=== PATIENT | male | born 1970 | race Caucasian/White ===

== ENCOUNTER 2024-06-22 10:01 | Outpatient (OUT) | payer OTHER, SELFPAY | END 2024-06-22 10:02 | disposition home or self-care (01) | PROVIDERS: PCP Nurse Practitioner; Visit Provider Otolaryngology | DX: J30.9 Allergic rhinitis, unspecified (principal) | CPT/HCPCS: 36415; 82785; 86003 ==

== ENCOUNTER 2024-07-04 16:22 | Outpatient (OUT) | payer OTHER, SELFPAY ==
--- OUTSIDE RECORDS SUMMARY | 2024-07-04 16:25 | XMS_ITS | CCD ---
Author Organization [facility] Care Team Providers Care Manager Of Organizational Development Name Role Phone Keila Lemus Primary Care Physician [phone] GERARDO COSME Referring Unavailable TIMMISMIRIAM Attending Unavailable ROBELALESHA Referring Unavailable TIMMISMIRIAM Referring Unavailable BordnerLisa Attending Unavailable STRANGEKATHARINE AGUAYO Attending Unavailabl e ROBEL, ALESHA Escobar Attending Unavailable STRANGEKATHARINE AGUAYO Attending Unavailabl e Mariah, Keila Beltran Attending Unavailable Mariah, Keila Beltran Attending Unavailable ROBEL, ALESHA Escobar Attending Unavailable ROBEL, ALESHA Escobar Attending Unavailable Mariah, Keila Beltran Attending Unavailable Mariah, Keila Beltran Attending Unavailable Mariah, Keila Beltran Attending Unavailable Mariah, Keila Beltran Attending Unavailable Mariah, Keila Beltran Attending Unavailable Mariah, Keila Beltran Attending Unavailable Mariah, Keila Beltran Attending Unavailable Mariah, Keila Beltran Attending Unavailable ROBELALESHA Attending Unavailable Medications Current Medications Medication Drug Class(es) Dates Sig (Normalized) Sig (Original) azithromycin 500 mg oral tablet (2 sources) Macrolide Antimicrobial Start: 4 End: 4 take 1 tablet by mouth once daily Zithromax 500 mg oral tablet 500 mg = 1 tab(s), Oral, Daily, X 5 day(s), # 5 tab(s), Refills(s) 0, Pharmacy: [facility]/pharmacy #[id number], 177, cm, 04/14/24 13:38:00 EDT, Height/Length Dosing, 122.3, kg, 04/14/24 13:38:00 EDT, Weight Dosing Start Date: 04/14/24 Stop Date: 04/19/24 Status: Ordered cyclobenzaprine hydrochloride 5 mg oral tablet (1 source) Muscle Relaxant Start: 4 End: 4 take 1 tablet by mouth at bedtime cyclobenzaprine 5 mg Tab 5 mg = 1 tab(s), Oral, Bedtime, X 7 day(s), # 7 tab(s), Refills(s) 0, Pharmacy: [facility]/pharmacy #[id number], 177, cm, 03/15/24 13:18:00 EDT, Height/Length Dosing, 122, kg, 03/15/24 13:18:00 EDT, Weight Dosing Start Date: 03/15/24 Stop Date: 03/22/24 Status: Ordered meloxicam 15 mg oral tablet (3 sources) Nonsteroidal Anti-inflammatory Drug Start: 3 take 1 tablet by mouth once daily meloxicam 15 mg Tab 15 mg = 1 tab(s), Oral, Daily, Refills(s) 0 Start Date: 08/19/23 Status: Ordered methylPREDNISolone 4 mg oral tablet (2 sources) Corticosteroid Start: 4 Medrol Dosepack 4 mg Tab = 1 packet(s), Oral, Once, as directed on package labeling, # 21 tab(s), Refills(s) 0, Pharmacy: [facility]/pharmacy #[id number], 177, cm, 04/14/24 13:38:00 EDT, Height/Length Dosing, 122.3, kg, 04/14/24 13:38:00 EDT, Weight Dosing Start Date: 04/14/24 Status: Ordered omeprazole 40 mg delayed release oral capsule (3 sources) Proton Pump Inhibitor Start: 4 take 1 capsule by mouth once daily omeprazole 40 mg Cap-DR 40 mg = 1 cap(s), Oral, Daily, # 90 cap(s), Refills(s) 1, Pharmacy: [facility]/pharmacy #[id number], 177, cm, 12/13/23 15:39:00 EDT, Height/Length Dosing, 119.9, kg, 12/13/23 15:39:00 EDT, Weight Dosing Start Date: 12/13/23 Status: Ordered Completed/Discontinued Medications Medication Drug Class(es) Dates Sig (Normalized) Sig (Original) atorvastatin 10 mg oral tablet (3 sources) HMG-CoA Reductase Inhibitor Start: 08-28-2023 lisinopril 10 mg oral tablet (3 sources) Angiotensin Converting Enzyme Inhibitor Start: 05-09-2023 loratadine 10 mg oral tablet (3 sources) Start: 05-07-2015 Problems Problem Classification Problem Date Documented Da te Episodic/Chronic Bacterial infection; unspecified site (1 source) Bacterial infectious disease; Translations: [Other specified bacterial agents as the cause of diseases classified elsewhere] Onset: 4 Episodic Conditions associated with dizziness or vertigo (3 sources) Dizziness 10-14-2023 Episodic Disorders of lipid metabolism (3 sources) Hyperlipidemia 08-19-2023 Chronic Esophageal disorders (3 sources) Gastroesophageal reflux disease 12-13-2023 Chronic Essential hypertension (3 sources) Essential hypertension 08-19-2023 Chronic Gastrointestinal hemorrhage (3 sources) Hematochezia 01-31-2024 Episodic Noninfectious gastroenteritis (3 sources) Gastroenteritis 12-09-2023 Episodic Other ear and sense organ disorders (3 sources) Hearing loss 08-19-2023 Chronic Other ear and sense organ disorders (3 sources) Tinnitus 08-19-2023 Episodic Other nutritional; endocrine; and metabolic disorders (1 source) Obesity; Translations: [Obesity, unspecified] Onset: 4 Chronic Other nutritional; endocrine; and metabolic disorders (1 source) Obese class II; Translations: [Body mass index (BMI) 38.0-38.9, adult] Onset: 4 Chronic Other nutritional; endocrine; and metabolic disorders (3 sources) Body mass index 30+ - obesity 01-31-2024 Chronic Other upper respiratory disease (3 sources) Seasonal allergy 08-19-2023 Chronic Other upper respiratory infections (3 sources) Sinusitis 08-19-2023 Chronic Other upper respiratory infections (1 source) Acute sinusitis, unspecified; Translations: [Acute sinusitis, unspecified] Onset: 4 Episodic Otitis media and related conditions (6 sources) Finding of fluid behind tympanic membrane; Translations: [Otitis media of right ear] 10-14-2023 Episodic Spondylosis; intervertebral disc disorders; other back problems (4 sources) Low back pain; Translations: [Low back pain, unspecified] Onset: 4 Episodic Results Test Name Value Interpretation Reference Range Facility Provider Letteron 06-23-2024 Provider Letter Provider Letter June 23, 2024 GILLIAN ARROYO [id number] [id number] : 1970 To Whom It May Concern, Please excuse above patient from work. Date of Illness: From: 06/22/2024 To: 06/23/2024 May Return to Work On: 06/26/2024 Sincerely, [address] [address] [facility] Ambulatory Visit Summaryon 1 Ambulatory Visit Summary Ambulatory Visit Summary GILLIAN ARROYO :1970 Visit Date:06/22/2024 Ambulatory Visit Instructions Your Diagnosis Chronic back pain BMI 40.0-44.9, adult Former smoker Your Care Team Attending Physician - Keila House Primary Care Physician - Keila House This Is Your Medications List atorvastatin (atorvastatin 10 mg Tab) baclofen cetirizine (cetirizine 10 mg Tab) fluticasone nasal (fluticasone Nasal 0.05 mg/inh [place]) lisinopril (lisinopril 10 mg Tab) meloxicam (meloxicam 15 mg Tab) omeprazole (omeprazole 40 mg Cap-DR) [Image Removed: STOP]Stop taking these medications amoxicillin-clavulanate (amoxicillin-clavulanat e 875 mg-125 mg Tab) Procedures Performed Surgery, Surgery. Discharge Vitals Temperature (Tympanic) 36.5 ?C Heart Rate (Peripheral) 80 Respiratory Rate 18 Blood Pressure 124/86 Height 178.0 cm Height 70 in Weight 128.3 kg Weight 282.26 lb BMI 40.49 What to do next Scheduled Follow-Up Appointments Wednesday 11:20 AM EST With: Keila House Where: [place] [id number]- Medications What How Much When Instructions Unchanged atorvastatin (atorvastatin 10 mg Tab) 1 Tablets By Mouth Every day 10 Unknown, ORAL, 0 Refill(s) Unchanged baclofen By Mouth 3 times a day Unchanged cetirizine (cetirizine 10 mg Tab) TAKE 1 TABLET BY MOUTH EVERY DAY NEEDED FOR ALLERGIES Unchanged fluticasone nasal (fluticasone Nasal 0.05 mg/ inh [place]) PLEASE SEE ATTACHED FOR DETAILED DIRECTIONS Unchanged lisinopril (lisinopril 10 mg Tab) 1 Tablets By Mouth Every day Unknown, 0 Refill(s) Unchanged meloxicam (meloxicam 15 mg Tab) 1 Tablets By Mouth Every day Unchanged omeprazole (omeprazole 40 mg Cap-DR) See instructions TAKE 1 CAPSULE BY MOUTH EVERY DAY What When Comments Stop Taking amoxicillin-clavulanate (amoxicillin-clavulanat e 875 mg-125 mg Tab) TAKE 1 TABLET BY MOUTH IN THE MORNING AND BEFORE BEDTIME Allergies No Known Allergies Problems Ongoing - Any problem that you are currently receiving treatment for. Acid reflux Back pain Bloody stool BMI 38.0-38.9,adult Chronic back pain Chronic sinus infection Dizziness Essential hypertension Fluid level behind tympanic membrane of both ears Gastroenteritis Hearing loss Hyperlipidemia Right otitis media Seasonal allergies Sinusitis Tinnitus Patient Survey You may receive a survey via text or e-mail asking about your office visit. Please share your experience with us by completing your survey. We appreciate your feedback and thank you for choosing us for your care. [facility] Family Medicine Office/Clini c Noteon 06-22-2024 Family Medicine Office/Clinic Note Family Medicine Office/Clinic Note HPI Staff Pt presents today for acute visit. Respiratory C/O: Onset: 3 days ago Body aches: no Chest congestion: no Chills: no Cough: yes Sputum production: no Sore throat: yes Ear complaints: no Eye itching/watering: yes Fever: no Headache: yes Nasal congestion: yes Nasal discharge: no Poor appetite: no Reduced activity: no Sinus pain/pressure: yes Sneezing: no Wheezing: no Ill contacts: no Remedies tried: DayQuil , Sudafed, Tylenol Pt is having allergy test done today after appointment, completed amoxicillin last Wednesday. pt states he called off work Wednesday and Wednesday. Pain characteristics: Pain location: Lower back pain Intensity:5/10 worse over the last week everyday he is working Medication used: Baclofen, meloxicam Intermittently will feel like both legs are falling asleep within half hour of driving. History of Present Illness pt presents today for sinus pressure and congestion and back pain Review of Systems PHQ Score Initial Depression Screen Score: 0 SCORE Physical Exam Vitals & Measurements T: 36.5 ?C(Tympanic) HR: 80(Peripheral) RR: 18 BP: 124/86 SpO2: 97% HT: 70 in HT: 178.0 cm WT: 128.3 kg WT: 282.26 lb BMI: 40.49 General: alert, no acute distress ENMT: oral mucosa moist, no pharyngeal erythema or exudate Cardiovascular: regular rate and rhythm, normal peripheral perfusion Respiratory: Lungs CTA, respirations non labored Extremities: no deformity, no trauma Neurological: oriented x 4, LOC appropriate for age, CN II-XII intact, motor strength equal & normal bilaterally, speech normal Assessment/Plan 1. Sinusitis (J32.9: Chronic sinusitis, unspecified) pt was on a one month regimen by Dr. Ortiz. pt was instructed to call Dr. Ortiz if symptoms persisted after the treatment. he is back today with sinus pressure and tenderness, eye are red and ear canals are red. TM clear fluid. pt instructed to call Dr. Ortiz. He was going to order CT of sinuses if symptoms came back. pt encouraged to continue probiotics and eating yogurt since he was on antibiotics for so long 2. Chronic back pain (M54.9: Dorsalgia, unspecified) pt has found a couple places he can stop to stretch when driving to work. sitting in the car for too long causes back pain to worsen and leg numbness 3. BMI 40.0-44.9, adult (Z68.41: Body mass index [BMI] 40.0-44.9, adult) BMI education given 4. Former smoker (Z87.891: Personal history of nicotine dependence) continue not smoking Orders: amoxicillin-clavulanate , 1 tab(s), Oral, q12hr for 7 day(s), 14 tab(s), Refill(s) 0, [id number], 178, cm, 06/22/24 9:14:00 EDT, Height/Length Dosing, 128.3, kg, 06/22/24 9:14:00 EDT, Weight Dosing methylPREDNISolone, = 1 packet(s), Oral, Once, as directed on package labeling, # 21 tab(s), Refills(s) 0, Pharmacy: [id number], 178, cm, 06/22/24 9:14:00 EDT, Height/Length Dosing, 128.3, kg, 06/22/24 9:14:00 EDT, Weight Dosing Follow-up No qualifying data available Problem List/Past Medical History Ongoing Acid reflux Back pain Bloody stool BMI 38.0-38.9,adult Chronic back pain Chronic sinus infection Dizziness Essential hypertension Fluid level behind tympanic membrane of both ears Gastroenteritis Hearing loss Hyperlipidemia Right otitis media Seasonal allergies Sinusitis Tinnitus Historical No qualifying data Procedure/Surgical History Surgery, Surgery. Medications amoxicillin-clavulanate 875 mg-125 mg Tab, 1 tab(s), Oral, q12hr atorvastatin 10 mg Tab, 10 mg= 1 tab(s), Oral, Daily baclofen, Oral, TID cetirizine 10 mg Tab fluticasone Nasal 0.05 mg/inh [place] lisinopril 10 mg Tab, 10 mg= 1 tab(s), Oral, Daily meloxicam 15 mg Tab, 15 mg= 1 tab(s), Oral, Daily methylPREDNISolone 4 mg tab dosepak, 1 packet(s), Oral, Once omeprazole 40 mg Cap-DR, See Instructions Allergies No Known Allergies Social History Tobacco Former smoker, quit more than 30 days ago, quit 2013 Tobacco Use:. Never Smokeless Tobacco Use:. Cigarettes, Household tobacco concerns: No. Yes, 06/22/2024 Family History Cancer: Father. Diabetes mellitus type 2: Mother. Immunizations Vaccine Date Status diphtheria/pertussis, acel/tetanus adult 11/03/2023 Recorded influenza virus vaccine, inactivated 06/26/2023 Recorded zoster vaccine, inactivated 11/14/2022 Recorded SARS-CoV-2 (COVID-19) [id number] 10/04/2022 Recorded influenza virus vaccine, inactivated 06/14/2022 Recorded SARSCoV2 mRNA(zesnhophr-xhjt-mni ros) vac 03/04/2022 Recorded zoster vaccine, inactivated 09/04/2021 Recorded SARS-CoV-2 (COVID-19) mRNA BNT-162b2 vax 08/22/2021 Recorded influenza virus vaccine, inactivated 06/30/2021 Recorded influenza virus vaccine, inactivated 07/17/2019 Recorded influenza virus vaccine, inactivated 05/28/2017 Recorded influenza virus vaccine, inactivated 06/23/2016 Recorded [facility] Comment on above: Result Comment: Elec tronically Signed By: Keila House\.br\Date and Time Signed: 06/22/24 09:31 EDT Provider Letteron 06-22-2024 Provider Letter Provider Letter June 22, 2024 GILLIAN DINA [id number] [id number] : 1970 To Whom It May Concern, Please excuse above patient from work. Date of Illness: From: _ 06-22-24 To: _ 06-22-24 May Return to Work On: 06-23-24 Restrictions: _ Comments: _ Sincerely, [place] [address] [facility] Ambulatory Visit Summaryon 0 05-17-2024 Ambulatory Visit Summary Ambulatory Visit Summary DINAGILLIAN :1970 Visit Date:05/17/2024 Ambulatory Visit Instructions Your Diagnosis Former smoker BMI 39.0-39.9,adult Class 1 obesity due to excess calories in adult Your Care Team Attending Physician - Keila House Primary Care Physician - Keila House This Is Your Medications List amoxicillin-clavulanate (amoxicillin-clavulanat e 875 mg-125 mg Tab) atorvastatin (atorvastatin 10 mg Tab) baclofen cetirizine (cetirizine 10 mg Tab) fluticasone nasal (fluticasone Nasal 0.05 mg/inh [place]) lisinopril (lisinopril 10 mg Tab) meloxicam (meloxicam 15 mg Tab) omeprazole (omeprazole 40 mg Cap-DR) Procedures Performed Surgery, Surgery. Discharge Vitals Temperature (Oral) 36.7 ?C Heart Rate (Peripheral) 88 Respiratory Rate 18 Blood Pressure 124/82 Height 178.0 cm Height 70 in Weight 124.9 kg Weight 274.78 lb BMI 39.42 What to do next Scheduled Follow-Up Appointments Wednesday 11:20 AM EST With: Keila Houes [facility] [address] [place] [address]- Medications What How Much When Why Instructions Unchanged amoxicillin-clavulanate (amoxicillin-clavulanat e 875 mg-125 mg Tab) TAKE 1 TABLET BY MOUTH IN THE MORNING AND BEFORE BEDTIME Unchanged atorvastatin (atorvastatin 10 mg Tab) 1 Tablets By Mouth Every day 10 Unknown, ORAL, 0 Refill(s) Unchanged baclofen By Mouth 3 times a day Unchanged cetirizine (cetirizine 10 mg Tab) TAKE 1 TABLET BY MOUTH EVERY DAY NEEDED FOR ALLERGIES Unchanged fluticasone nasal (fluticasone Nasal 0.05 mg/ inh [place]) PLEASE SEE ATTACHED FOR DETAILED DIRECTIONS Unchanged lisinopril (lisinopril 10 mg Tab) 1 Tablets By Mouth Every day Unknown, 0 Refill(s) Unchanged meloxicam (meloxicam 15 mg Tab) 1 Tablets By Mouth Every day Unchanged omeprazole (omeprazole 40 mg Cap-DR) 1 Capsules By Mouth Every day Acid reflux BMI 37.0-37.9, adult Non-smoker Allergies No Known Allergies Problems Ongoing - Any problem that you are currently receiving treatment for. Acid reflux Back pain Bloody stool BMI 38.0-38.9,adult Chronic sinus infection Dizziness Essential hypertension Fluid level behind tympanic membrane of both ears Gastroenteritis Hearing loss Hyperlipidemia Right otitis media Seasonal allergies Sinusitis Tinnitus Patient Survey You may receive a survey via text or e-mail asking about your office visit. Please share your experience with us by completing your survey. We appreciate your feedback and thank you for choosing us for your care. [facility] Medicine Office/Clini c Noteon 05-17-2024 Family Medicine Office/Clinic Note Family Medicine Office/Clinic Note [facility] Staff Gillian is a 54 year old male presenting with FMLA paper work History of Present Illness pt presents today for FMLA paper work for chronic back pain Review of Systems PHQ Score Initial Depression Screen Score: 0 SCORE Physical Exam Vitals & Measurements T: 36.7 ?C(Oral) HR: 88(Peripheral) RR: 18 BP: 124/82 SpO2: 98% HT: 70 in HT: 178.0 cm WT: 124.9 kg WT: 274.78 lb BMI: 39.42 General: alert, no acute distress ENMT: oral mucosa moist, no pharyngeal erythema or exudate Cardiovascular: regular rate and rhythm, normal peripheral perfusion Respiratory: Lungs CTA, respirations non labored Extremities: no deformity, no trauma Neurological: oriented x 4, LOC appropriate for age, CN II-XII intact, motor strength equal & normal bilaterally, speech normal Assessment/Plan 1. Chronic back pain (M54.9: Dorsalgia, unspecified) pt c/o chronic back pain follow up. is being treated at [facility] for continued back pain. he states they ordered baclofen patches and are changing the muscle relaxer in hopes that it won't make him so drowsy. When his pain flares up and he takes medication it makes him very drowsy, then he is unable to drive safely. Will complete FMLA paper work today and he will turn it in. copy scanned into chart. RTC 6 months. 2. Former smoker (Z87.891: Personal history of nicotine dependence) continue not smoking 3. BMI 39.0-39.9,adult (Z68.39: Body mass index [BMI] 39.0-39.9, adult) BMI education given 4. Class 1 obesity due to excess calories in adult (E66.09: Other obesity due to excess calories) see above 5. Chronic sinus infection (J32.9: Chronic sinusitis, unspecified) pt continues to follow with ENT for this Follow-up No qualifying data available Problem List/Past Medical History Ongoing Acid reflux Back pain Bloody stool BMI 38.0-38.9,adult Chronic back pain Chronic sinus infection Dizziness Essential hypertension Fluid level behind tympanic membrane of both ears Gastroenteritis Hearing loss Hyperlipidemia Right otitis media Seasonal allergies Sinusitis Tinnitus Historical No qualifying data Procedure/Surgical History Surgery, Surgery. Medications amoxicillin-clavulanate 875 mg-125 mg Tab atorvastatin 10 mg Tab, 10 mg= 1 tab(s), Oral, Daily baclofen, Oral, TID cetirizine 10 mg Tab fluticasone Nasal 0.05 mg/inh [place] lisinopril 10 mg Tab, 10 mg= 1 tab(s), Oral, Daily meloxicam 15 mg Tab, 15 mg= 1 tab(s), Oral, Daily omeprazole 40 mg Cap-DR, 40 mg= 1 cap(s), Oral, Daily, 1 refills Allergies No Known Allergies Social History Tobacco Former smoker, quit more than 30 days ago, quit 2013 Tobacco Use:. Never Smokeless Tobacco Use:. Cigarettes, Household tobacco concerns: No. Yes, 05/17/2024 Family History Cancer: Father. Diabetes mellitus type 2: Mother. Immunizations Vaccine Date Status diphtheria/pertussis, acel/tetanus adult 11/03/2023 Recorded influenza virus vaccine, inactivated 06/26/2023 Recorded zoster vaccine, inactivated 11/14/2022 Recorded SARS-CoV-2 (COVID-19) [id number] 10/04/2022 Recorded influenza virus vaccine, inactivated 06/14/2022 Recorded SARSCoV2 mRNA(dejmmuxcw-wzic-imv ros) vac 03/04/2022 Recorded zoster vaccine, inactivated 09/04/2021 Recorded SARS-CoV-2 (COVID-19) mRNA BNT-162b2 vax 08/22/2021 Recorded influenza virus vaccine, inactivated 06/30/2021 Recorded influenza virus vaccine, inactivated 07/17/2019 Recorded influenza virus vaccine, inactivated 05/28/2017 Recorded influenza virus vaccine, inactivated 06/23/2016 Recorded [facility] Comment on above: Result Comment: Elec tronically Signed By: Keila House\.br\Date and Time Signed: 05/17/24 11:17 EDT Ambulatory Visit Summaryon 0 05-05-2024 Ambulatory Visit Summary Ambulatory Visit Summary CIRAGILLIAN AGUDELO :1970 Visit Date:05/05/2024 Ambulatory Visit Instructions Your Diagnosis Chronic sinus infection BMI 39.0-39.9,adult Former smoker Obesity Your Care Team Attending Physician - ALESHA HUSTON CNP Primary Care Physician - Keila House This Is Your Medications List amoxicillin-clavulanate (amoxicillin-clavulanat e 875 mg-125 mg Tab) atorvastatin (atorvastatin 10 mg Tab) cetirizine (cetirizine 10 mg Tab) lisinopril (lisinopril 10 mg Tab) meloxicam (meloxicam 15 mg Tab) omeprazole (omeprazole 40 mg Cap-DR) predniSONE (predniSONE 20 mg Tab) tizanidine (tiZANidine 4 mg Tab) Procedures Performed Surgery, Surgery. Discharge Vitals Temperature (Oral) 36.8 ?C Heart Rate (Peripheral) 95 Respiratory Rate 16 Blood Pressure 144/82 Height 178 cm Height 70 in Weight 124.3 kg Weight 273.46 lb BMI 39.23 Medications What How Much When Why Instructions Unchanged amoxicillin-clavulanate (amoxicillin-clavulanat e 875 mg-125 mg Tab) TAKE 1 TABLET BY MOUTH IN THE MORNING AND BEFORE BEDTIME Unchanged atorvastatin (atorvastatin 10 mg Tab) 1 Tablets By Mouth Every day 10 Unknown, ORAL, 0 Refill(s) Unchanged cetirizine (cetirizine 10 mg Tab) TAKE 1 TABLET BY MOUTH EVERY DAY NEEDED FOR ALLERGIES Unchanged lisinopril (lisinopril 10 mg Tab) 1 Tablets By Mouth Every day Unknown, 0 Refill(s) Unchanged meloxicam (meloxicam 15 mg Tab) 1 Tablets By Mouth Every day Unchanged omeprazole (omeprazole 40 mg Cap-DR) 1 Capsules By Mouth Every day Acid reflux BMI 37.0-37.9, adult Non-smoker Unchanged predniSONE (predniSONE 20 mg Tab) TAKE 1 TABLET BY MOUTH IN THE MORNING AND BEFORE BEDTIME FOR 6 DAYS Unchanged tizanidine (tiZANidine 4 mg Tab) 1 Tablets By Mouth At bedtime Neck pain Allergies No Known Allergies Problems Ongoing - Any problem that you are currently receiving treatment for. Acid reflux Back pain Bloody stool BMI 38.0-38.9,adult Chronic sinus infection Dizziness Essential hypertension Fluid level behind tympanic membrane of both ears Gastroenteritis Hearing loss Hyperlipidemia Right otitis media Seasonal allergies Sinusitis Tinnitus Patient Survey You may receive a survey via text or e-mail asking about your office visit. Please share your experience with us by completing your survey. We appreciate your feedback and thank you for choosing us for your care. [facility] Family Medicine Office/Clini c Noteon 05-05-2024 Family Medicine Office/Clinic Note Family Medicine Office/Clinic Note Chief Complaint Requesting Work Release HPI Staff Pt presents today due to back pain and sinus pressure. Did see ENT. Has been taking meds as directed. Did take muscle relaxer last. Did help. Did not take this morning. Would like a work excuse. Since he did not go to work today. History of Present Illness 54 year old patient of Heather Lemus CNP presents today for work excuse. He reports he could not drive to [place] today for work because lst PM his back hurt and he has been waiting for the medications he took to take effect. He also reports his sinuses were bothering him. He was seen by Dr. Ortiz on 04/26/2024 for his sinuses and he was prescribed a 30 day regime. He reports he was able to get relief after he got up this AM and completed the saline rinse but he was suppose to be at work in [place] at 7 AM. He states he does not need any medication he just needs the note for his employer. Review of Systems PHQ Score Initial Depression Screen Score: 0 SCORE Constitutional: no fever, no chills, no sweats, no weakness Skin: no Jaundice, no rash, no lesions, nopetechiae ENMT: no ear pain, no sore throat, no congestion, no hoarseness Respiratory: no shortness of breath, no cough, no orthopnea, no wheezing Cardiovascular: no chest pain, no palpitations, no edema Gastrointestinal: no nausea, no vomiting, no diarrhea, no GI bleeding Genitourinary: no dysuria, no hematuria, no discharge, no pain Musculoskeletal: no back pain, no trauma Neurologic: no headache, no dizziness, no numbness, no weakness Psychiatric: no sleeping problems, no irritability, no mood swings/depression. Heme/Lymph: no bleeding tendency, no bruising tendency, no petechiae, no swollen nodes Allergy/Immunologic: no seasonal allergies, no food allergies, no recurrent infections, no impaired immunity Additional ROS info: Except as noted in the above Review of Systems and in the History of Present Illness all other systems have been reviewed and are negative or noncontributory. Physical Exam Vitals & Measurements T: 36.8 ?C(Oral) HR: 95(Peripheral) RR: 16 BP: 144/82 SpO2: 94% HT: 70 in HT: 178 cm WT: 124.3 kg WT: 273.46 lb BMI: 39.23 General: alert, no acute distress Cardiovascular: regular rate and rhythm, normal peripheral perfusion Respiratory: Lungs CTA, respirations non labored Extremities: no deformity, no trauma Neurological: oriented x 4, LOC appropriate for age, CN II-XII intact speech normal Assessment/Plan 1. Chronic sinus infection (J32.9: Chronic sinusitis, unspecified) Patient has established with Dr. Clark on 04/26/2024- Encouraged to continue medication regime from that office Encouraged to f/u with pcp to have FMLA papers completed so he does not have to come in for a visit each time he needs note- patient voiced understanding Note completed for employer stating he was in the office today f/u with pcp when he obtained the FMLA paper 2. Back pain (M54.9: Dorsalgia, unspecified) Continue meloxicam 15 mg tablet po daily & tizanidine 4 mg one tablet po at bedtime Encouraged to f/u with pcp to have FMLA papers completed so he does not have to come in for a visit each time he needs note- patient voiced understanding 3. BMI 39.0-39.9,adult (Z68.39: Body mass index [BMI] 39.0-39.9, adult) The standard range for ages 18 and older is >=18.5 and < 25 kg/m2. Your BMI today was above this range, this falls in the overweight to obese category and there are medical benefits to weight loss. We can offer counselling, referral, and/or medical support in addressing this problem. Your BMI and weight management will be followed at subsequent visits. 4. Former smoker (Z87.891: Personal history of nicotine dependence) ENcouraged to continue as a non-smoker 5. Obesity (E66.9: Obesity, unspecified) The standard range for ages 18 and older is >=18.5 and < 25 kg/m2. Your BMI today was above this range, this falls in the overweight to obese category and there are medical benefits to weight loss. We can offer counselling, referral, and/or medical support in addressing this problem. Your BMI and weight management will be followed at subsequent visits. Total time spent preparing the chart, conducting of the encounter with the patient and family and time spent documenting, reviewing, and ordering tests was 20 minutes. Follow-up No qualifying data available Patient Education Managing Chronic Back Pain Problem List/Past Medical History Ongoing Acid reflux Back pain Bloody stool BMI 38.0-38.9,adult Chronic sinus infection Dizziness Essential hypertension Fluid level behind tympanic membrane of both ears Gastroenteritis Hearing loss Hyperlipidemia Right otitis media Seasonal allergies Sinusitis Tinnitus Historical No qualifying data Procedure/Surgical History Surgery, Surgery. Medications amoxicillin-clavulanate 875 mg-125 mg Tab atorvastatin 10 mg Tab, 10 mg= 1 tab(s), Oral, (more content not included)... [facility] Comment on above: Result Comment: Elec tronically Signed By: ALESHA HUSTON CNP\.br\Date and Time Signed: 05/05/24 11:11 EDT Provider Letteron 05-05-2024 Provider Letter Provider Letter May 05, 2024 GILLIAN ARROYO [id number] [address] : 1970 To Whom It May Concern, Jose did have an appointment today with Alesha Huston, GARCIA, PROOF PLATE [employer]KER, BC @ 10:20 a.m. May Return to Work On: 05-08-24 Restrictions: _ Comments: _ Sincerely, Family Medicine [address] [address] [facility] [address] MAXILLOFACIAL WO IV CONTR Levi 05-02-2024 CT MAXILLOFACIAL WO IV CONTRAST EXAM: CT Sinuses Without Contrast: REASON FOR EXAM: Chronic sinusitis, facial pressure, headaches for one month COMPARISON: Sinus x-rays February 09, 2024. TECHNIQUE: Axial, coronal, sagittal thin cuts of the sinuses obtained. Contrast not administered. FINDINGS: The visualized brain is without abnormality within the limitations of the exam. Atherosclerosis noted. The visualized salivary glands are symmetric. The parapharyngeal fat pads are nondisplaced where visualized. Scattered small cervical lymph nodes are present. The orbits and globes are intact. The bony nasal septum is displaced to the left. The paranasal sinuses are without air-fluid level. There is a nodular density in the posterior aspect of the left maxillary sinus measuring 2 cm in diameter and 21.5 Hounsfield units. Mild mucosal thickening of the maxillary sinuses bilaterally. Minimal mucosal thickening of the ethmoids are present. The turbinates are symmetric. The ostiomeatal units are patent bilaterally. The temporomandibular joints are without abnormality. The mastoid air cells are well-aerated. IMPRESSION: 1. The ostiomeatal units are patent bilaterally. 2. Retention cyst with complex fluid or polyp of the floor of the left maxillary sinus 2 cm. 3. Mild mucosal thickening of the maxillary and ethmoid sinuses. No air-fluid levels. *This report is generated using voice recognition reporting ([employer]). On occasion [employer] erroneously drops words from the report or replaces the spoken word with similar sounding words. Please call with any questions/concerns regarding this report.* Dictated and transcribed 05/02/24/dpd This report has been electronically signed and approved by the interpreting radiologist. Electronically Signed Jerson Robledo II, M.D. 2024-05-02 10:24:46 Normal Not Available Comment on above: Order Comment: [facility] on [facility] Sinus WO at [facility] Luisa @ 05/29. Please call patient to schedule. CHRONIC SINUSITIS, HEADACHES Family Medicine Office/Clini c Noteon 04-21-2024 Family Medicine Office/Clinic Note Family Medicine Office/Clinic Note HPI Staff Gillian is a 54 year old male presenting with neck pain and sinus pressure Onset: yesterday Location: neck pain Duration: Characteristics: sharp, dull pain Aggravated by: turning head turning left hurts Relieved by: Took Tylenol Timing:_ Associated Symptoms:body aches SINUS PRESSURE Headache- yes Earache- no Sinus Congestion- yes Rhinorrhea- no Sore Throat- yes Cough- no wheezing- no Dyspnea on exertion- no Orthopnea- Trouble laying flat/breathing through nose: no Lung Hx (asthma, recurring bronchitis/chest colds, COPD)- no Fevers/chills- no GI symptoms- no I have reviewed and verified the staff HPI to be accurate for this encounter. History of Present Illness 54 year old patient NitzaDarinelGIANCARLO Lemus presents today for neck pain and chronic sinusitis. Patient was seen here in this office on 03/28/2024 for sinusitis. He was treated with amoxicillin/clavulanate twice daily x 10 days. He was seen April 14 at [facility]-he was prescribed azithromycin and a Medrol Dosepak. He states today he has continued sinus congestion and was asking for a refill of the azithromycin- this provider explained this provider would refer him to an ENT for evaluation of chronic sinusitis. He has concerns about neck pain. He reports he woke up yesterday with pain in the left side of his neck. He reports he is finding it difficult to move his head to the left. He reports he took some OTC Tylenol and it helped some. Review of Systems PHQ Score Initial Depression Screen Score: 0 SCORE Constitutional: no fever, no chills, no sweats, no weakness Skin: no Jaundice, no rash, no lesions, nopetechiae ENMT: no ear pain, no sore throat, no congestion, no hoarseness Respiratory: no shortness of breath, no cough, no orthopnea, no wheezing Cardiovascular: no chest pain, no palpitations, no edema Musculoskeletal: no back pain, no trauma Neurologic: no headache, no dizziness, no numbness, no weakness Psychiatric: no sleeping problems, no irritability, no mood swings/depression. Additional ROS info: Except as noted in the above Review of Systems and in the History of Present Illness all other systems have been reviewed and are negative or noncontributory. Physical Exam Vitals & Measurements T: 36.5 ?C(Oral) HR: 96(Peripheral) RR: 18 BP: 132/84 SpO2: 94% HT: 70 in HT: 177.0 cm WT: 122.9 kg WT: 270.38 lb BMI: 39.23 General: alert, no acute distress Skin: warm, dry Head: no trauma, normocephalic Neck: Trachea midline, no adenopathy, mild tenderness to left levator scapulae Eye: normal conjunctiva, sclera clear ENMT: TM's clear, oral mucosa moist, no pharyngeal erythema or exudate Cardiovascular: regular rate and rhythm, normal peripheral perfusion Respiratory: Lungs CTA, respirations non labored Back: No tenderness, Normal ROM, Normal alignment. Extremities: no deformity, no trauma Neurological: oriented x 4, LOC appropriate for age speech normal Psychiatric: cooperative, affect appropriate for age, normal judgement, normal psychiatric thoughts. Assessment/Plan 1. Neck pain (M54.2: Cervicalgia) Discussed neck muscle strain Encouraged to obtain a new bed pillow Note for employer stating in was in the office today f/u with pcp Ordered: tizanidine, 4 mg = 1 tab(s), Oral, Bedtime, # 7 tab(s), Refills(s) 0, Pharmacy: [facility]/pharmacy #[id number], 177, cm, 04/21/24 11:45:00 EDT, Height/Length Dosing, 122.9, kg, 04/21/24 11:45:00 EDT, Weight Dosing 2. Chronic sinusitis (J32.9: Chronic sinusitis, unspecified) Discussed with patient referral to ENT for chronic sinusitis Ordered: [facility] External Ambulatory Referral 3. Former smoker (Z87.891: Personal history of nicotine dependence) Encouraged to continue as a non-smoker 4. BMI 39.0-39.9,adult (Z68.39: Body mass index [BMI] 39.0-39.9, adult) The standard range for ages 18 and older is >=18.5 and < 25 kg/m2. Your BMI today was above this range, this falls in the overweight to obese category and there are medical benefits to weight loss. We can offer counselling, referral, and/or medical support in addressing this problem. Your BMI and weight management will be followed at subsequent visits. Follow-up No qualifying data available Problem List/Past Medical History Ongoing Acid reflux Back pain Bloody stool BMI 38.0-38.9,adult Dizziness Essential hypertension Fluid level behind tympanic membrane of both ears Gastroenteritis Hearing loss Hyperlipidemia Right otitis media Seasonal allergies Sinusitis Tinnitus Historical No qualifying data Procedure/Surgical History Surgery, Surgery. Medications atorvastatin 10 mg Tab, 10 mg= 1 tab(s), Oral, Daily lisinopril 10 mg Tab, 10 mg= 1 tab(s), Oral, Daily loratadine 10 mg Tab Medrol Dosepack 4 mg Tab, 1 packet(s), Oral, Once meloxicam 15 mg Tab, 15 mg= 1 tab(s), Oral, Daily omeprazole 40 mg Cap-DR, 40 mg= 1 cap(s), Oral, Daily, 1 refills tiZANidi (more content not included)... [facility] Comment on above: Result Comment: Elec tronically Signed By: ALESHA HUSTON CNP\.br\Date and Time Signed: 04/21/24 15:25 EDT Provider Letteron 04-21-2024 Provider Letter Provider Letter April 21, 2024 GILLIAN ARROYO [id number] [address] : 1970 To Whom It May Concern, Patient was seen in office on 04/21/2024 Comments: Please call office with any further questions. Sincerely, Family Medicine [address] [address] [facility] Ambulatory Visit Summaryon 0 04-14-2024 Ambulatory Visit Summary Ambulatory Visit Summary GILLIAN ARROYO :1970 Visit Date:04/14/2024 Ambulatory Visit Instructions Your Care Team Attending Physician - ALEXANDR ALCANTAR, MACARIO Primary Care Physician - Keila House This Is Your Medications List atorvastatin (atorvastatin 10 mg Tab) lisinopril (lisinopril 10 mg Tab) loratadine (loratadine 10 mg Tab) meloxicam (meloxicam 15 mg Tab) omeprazole (omeprazole 40 mg Cap-DR) Procedures Performed Surgery, Surgery. Discharge Vitals Temperature (Tympanic) 37.1 ?C Heart Rate (Peripheral) 102 Respiratory Rate 20 Blood Pressure 132/82 Height 177 cm Height 70 in Weight 122.3 kg Weight 269.06 lb BMI 39.04 Medications What How Much When Why Instructions Unchanged atorvastatin (atorvastatin 10 mg Tab) 1 Tablets By Mouth Every day 10 Unknown, ORAL, 0 Refill(s) Unchanged lisinopril (lisinopril 10 mg Tab) 1 Tablets By Mouth Every day Unknown, 0 Refill(s) Unchanged loratadine (loratadine 10 mg Tab) 10 Unknown, ORAL, 0 Refill(s) Unchanged meloxicam (meloxicam 15 mg Tab) 1 Tablets By Mouth Every day Unchanged omeprazole (omeprazole 40 mg Cap-DR) 1 Capsules By Mouth Every day Acid reflux BMI 37.0-37.9, adult Non-smoker Allergies No Known Allergies Problems Ongoing - Any problem that you are currently receiving treatment for. Acid reflux Back pain Bloody stool BMI 38.0-38.9,adult Dizziness Essential hypertension Fluid level behind tympanic membrane of both ears Gastroenteritis Hearing loss Hyperlipidemia Right otitis media Seasonal allergies Sinusitis Tinnitus Patient Survey You may receive a survey via text or e-mail asking about your office visit. Please share your experience with us by completing your survey. We appreciate your feedback and thank you for choosing us for your care. [facility] Family Medicine Office/Clini c Noteon 04-14-2024 Family Medicine Office/Clinic Note Family Medicine Office/Clinic Note Chief Complaint Sinus Congestion, Headache HPI Staff 54 year old male present for sinus congestion, pressure, headache, watery eyes, sneezing. Onset: Greater than 2 weeks ago, worsening symptoms as of Wednesday, 2 days ago. History of Present Illness Reviewed and agree with above documented HPI by esthetician and manager medical spa. Portions of this record may have been created with voice recognition artificial intelligence software, specifically [employer], [employer] and or [employer]. Substitutions may have occurred due to the inherent limitations of voice recognition and artificial intelligence software. Patient is a 54-year-old male who presents to [facility], for sinus pressure, sinus drainage, sinus headache, and facial pressure. Patient states symptoms started little over 2 weeks ago, but this past Wednesday he had increased sinus pressure and facial pressure and bilateral ear pressure, states he has a history of chronic sinus infections, has been trying to deal with that woyh-ndw-fupmeyl medications, had no relief, states he is using given his steroids and a Z-Kailash he does well, patient is able to eat and drink, has a sense of taste and smell intact, has no discomfort swallowing, has not noticed any postnasal drip. Patient states does have bilateral ear pressure, left greater than right, has a history of chronic left hearing loss, and has not noticed any drainage or bleeding. Patient denies having any worsening headache, different type of headache, difficulty swallowing, fevers, chills, nausea or vomiting, cough, chest pain, shortness of breath, or facial paresthesias. Review of Systems PHQ Score Initial Depression Screen Score: 0 SCORE Physical Exam Vitals & Measurements T: 37.1 ?C(Tympanic) HR: 102(Peripheral) RR: 20 BP: 132/82 SpO2: 96% HT: 70 in HT: 177 cm WT: 122.3 kg WT: 269.06 lb BMI: 39.04 General: Well developed, well nourished, in no acute distress. Patient does appears ill but not septic. No respiratory distress. Patient answers questions appropriately and in complete sentences, and follows commands appropriately. No facial droop, slurred speech, difficulty swallowing is noted. Head: Normocephalic/atraumati c. Positive bilateral frontal and positive bilateral maxillary sinus tenderness and pressure with palpation. No facial swelling cellulitis. Eyes: Pupils equal, round, and reactive to light. Conjunctivae and sclerae normal. Ears: Bilateral TMs bulging, left greater than right, no signs otitis media or otitis externa. Hearing is intact. Mouth: Mucous membranes moist. Normal oropharynx, and posterior pharynx with postnasal drip and without erythema, exudates, lesions, or enlarged tonsils. No trismus. No difficulty swallowing. Neck: Neck supple. No masses or palpable cervical nodes. No mastoid tenderness. Lungs: Normal respiratory effort and clear to auscultation throughout. No wheezing. Cardio: regular rate and rhythm, no murmur No chest wall deformity. No chest wall tenderness Extremity: Patient able to move all 4 extremities equally well any pain or weakness. Neurologic: Grossly normal Skin: No rashes, ulcerations, or suspicious lesions Lymph Nodes: no lad Mental Status: alert, active Assessment/Plan Patient prefer no swabs at this time. No chest imaging or breathing treatment were indicated at this time. 54-year-old male presents to [facility], for acute bacterial sinusitis, symptoms started greater than 2 weeks ago, worsening symptoms 2 days ago, patient did appear ill but not septic, no respiratory distress or difficulty swallowing was noted. Patient was given a prescription for Zithromax and Medrol Dosepak, instructed to take [id number]-[id number] Tylenol needed for any body aches, headaches, or fevers. Drink plenty water stay hydrated. Given a work excuse note. Follow-up with primary care provider as needed. 1. Acute bacterial sinusitis (J01.90: Acute sinusitis, unspecified) See above Ordered: azithromycin, 500 mg = 1 tab(s), Oral, Daily, X 5 day(s), # 5 tab(s), Refills(s) 0, Pharmacy: [facility]/pharmacy #[id number], 177, cm, 04/14/24 13:38:00 EDT, Height/Length Dosing, 122.3, kg, 04/14/24 13:38:00 EDT, Weight Dosing methylPREDNISolone, = 1 packet(s), Oral, Once, as directed on package labeling, # 21 tab(s), Refills(s) 0, Pharmacy: [facility]/pharmacy #[id number], 177, cm, 04/14/24 13:38:00 EDT, Height/Length Dosing, 122.3, kg, 04/14/24 13:38:00 EDT, Weight Dosing Other specified bacterial agents as the cause of diseases classified elsewhere (B96.89: Other specified bacterial agents as the cause of diseases classified elsewhere) Follow-up With When Contact Information Keila House, [place], MED Additional Instructions: Patient Education Sinus Infection, Adult, Mnzl-va-Yydp Problem List/Past Medical History Ongoing Acid reflux Back pain Bloody stool BMI 38.0-38.9,adult Dizziness Essential hypertension Fluid level behind tympanic membrane of both ear (more content not included)... [facility] Comment on above: Result Comment: Elec tronically Signed By: ALEXANDR ALCANTAR, MACARIO\.yasmeen\Date and Time Signed: 04/14/24 14:02 EDT Provider Letteron 04-14-2024 Provider Letter Provider Letter April 14, 2024 G[place]IAN ARROYO [id number] [address] : 1970 To Whom It May Concern, Please excuse above patient from work. Date of Illness: 04/14/2024 May Return to Work On: 04/17/2024 Sincerely, [facility] [address] [place] [address], [place] [address] [facility] Family Medicine Office/Clini c Noteon 04-07-2024 Family Medicine Office/Clinic Note Family Medicine Office/Clinic Note HPI Staff Gillian is a 54 year old male presenting with cramps and diarrhea Onset: started 04-05 Location: Duration: Characteristics: cramps and diarrhea Aggravated by: nothing Relieved by: First day he was taking Tums this did not help, Timing:best at night Associated Symptoms:_ me Left work early on 04/05. More than 6 times, this morning 2x. started cramping last night I have reviewed and verified the staff HPI to be accurate for this encounter. History of Present Illness 54 year old patient of Heather Lemus CNP presents for evaluation of diarrhea. He reports on Wednesday he left work because he had diarrhea and yesterday he worked from home. He states he had 6 stools yesterday and he has had 2 today and he called off work today. He has been taking TUMS for the diarrhea and he was prescribed Augmentin on 03/28/2024 for sinusitis. He reports still has some of this medication left. Review of Systems PHQ Score Initial Depression Screen Score: 0 SCORE Physical Exam Vitals & Measurements T: 36.7 ?C(Temporal Artery) HR: 89(Peripheral) RR: 20 BP: 122/84 SpO2: 97% HT: 70 in HT: 177.0 cm WT: 120.9 kg WT: 265.98 lb BMI: 38.59 General: alert, no acute distress Skin: warm, dry Head: no trauma, normocephalic Neck: Trachea midline, no adenopathy, no tenderness Eye: normal conjunctiva, sclera clear Cardiovascular: regular rate and rhythm, normal peripheral perfusion Respiratory: Lungs CTA, respirations non labored Gastrointestinal: soft, non distended, no tenderness, no guarding. Neurological: oriented x 4, LOC appropriate for age speech normal Psychiatric: cooperative, affect appropriate for age, normal judgement, normal psychiatric thoughts. Assessment/Plan 1. Diarrhea due to drug (K52.1: Toxic gastroenteritis and colitis) Discontinue the amoxicillin-clavulanate as the diarrhea is most likely related to this medication Note completed for patient to give to employer f/u with pcp if no improvement in 3 days 2. Former smoker (Z87.891: Personal history of nicotine dependence) Encouraged to continue as a non-smoker 3. BMI 38.0-38.9,adult (Z68.38: Body mass index [BMI] 38.0-38.9, adult) The standard range for ages 18 and older is >=18.5 and < 25 kg/m2. Your BMI today was above this range, this falls in the overweight to obese category and there are medical benefits to weight loss. We can offer counselling, referral, and/or medical support in addressing this problem. Your BMI and weight management will be followed at subsequent visits. Orders: amoxicillin-clavulanate , 1 tab(s), Oral, BID for 10 day(s), 20 tab(s), Refill(s) 0, [facility]/pharmacy #[id number], 177, cm, 03/28/24 15:06:00 EDT, Height/Length Dosing, 122.1, kg, 03/28/24 15:06:00 EDT, Weight Dosing Follow-up No qualifying data available Patient Education Food Choices to Help Relieve Diarrhea, Adult Problem List/Past Medical History Ongoing Acid reflux Back pain Bloody stool BMI 38.0-38.9,adult Dizziness Essential hypertension Fluid level behind tympanic membrane of both ears Gastroenteritis Hearing loss Hyperlipidemia Right otitis media Seasonal allergies Sinusitis Tinnitus Historical No qualifying data Procedure/Surgical History Surgery, Surgery. Medications atorvastatin 10 mg Tab, 10 mg= 1 tab(s), Oral, Daily lisinopril 10 mg Tab, 10 mg= 1 tab(s), Oral, Daily loratadine 10 mg Tab meloxicam 15 mg Tab, 15 mg= 1 tab(s), Oral, Daily omeprazole 40 mg Cap-DR, 40 mg= 1 cap(s), Oral, Daily, 1 refills Allergies No Known Allergies Social History Tobacco Former smoker, quit more than 30 days ago, quit 2013 Tobacco Use:. Never Smokeless Tobacco Use:. Cigarettes, Household tobacco concerns: No., 04/07/2024 Family History Cancer: Father. Diabetes mellitus type 2: Mother. Immunizations Vaccine Date Status diphtheria/pertussis, acel/tetanus adult 11/03/2023 Recorded influenza virus vaccine, inactivated 06/26/2023 Recorded zoster vaccine, inactivated 11/14/2022 Recorded SARS-CoV-2 (COVID-19) [id number] 10/04/2022 Recorded influenza virus vaccine, inactivated 06/14/2022 Recorded SARSCoV2 mRNA(plfsuhscm-vfia-xts ros) vac 03/04/2022 Recorded zoster vaccine, inactivated 09/04/2021 Recorded SARS-CoV-2 (COVID-19) mRNA BNT-162b2 vax 08/22/2021 Recorded influenza virus vaccine, inactivated 06/30/2021 Recorded influenza virus vaccine, inactivated 07/17/2019 Recorded influenza virus vaccine, inactivated 05/28/2017 Recorded influenza virus vaccine, inactivated 06/23/2016 Recorded Normal [facility] Comment on above: Result Comment: Elec tronically Signed By: ALESHA HUSTON CNP\.br\Date and Time Signed: 04/07/24 17:37 EDT Provider Letteron 04-07-2024 Provider Letter Provider Letter April 07, 2024 G[place]IAN DINA [id number] [address] : 1970 To Whom It May Concern, Please excuse above patient from work. Date of Illness: From:04/05/2024 To: 04/09/2024 May Return to Work On: 04/10/2024 Sincerely, Family Medicine [address] [address] [facility] Ambulatory Visit Summaryon 0 03-28-2024 Ambulatory Visit Summary Ambulatory Visit Summary GILLIAN ARROYO :1970 Visit Date:03/28/2024 Ambulatory Visit Instructions Your Diagnosis Chronic sinusitis Your Care Team Attending Physician - ALESHA HUSTON CNP Primary Care Physician - Keila House This Is Your Medications List amoxicillin-clavulanate (Augmentin 875 mg-125 mg Tab) atorvastatin (atorvastatin 10 mg Tab) lisinopril (lisinopril 10 mg Tab) loratadine (loratadine 10 mg Tab) meloxicam (meloxicam 15 mg Tab) methylPREDNISolone (Medrol 4 mg Tab) omeprazole (omeprazole 40 mg Cap-DR) Procedures Performed Surgery, Surgery. Discharge Vitals Temperature (Temporal Artery) 36.8 ?C Heart Rate (Peripheral) 90 Respiratory Rate 16 Blood Pressure 134/86 Height 177 cm Height 70 in Weight 122.1 kg Weight 268.62 lb BMI 38.97 Medications What How Much When Why Instructions New amoxicillin-clavulanate (Augmentin 875 mg-125 mg Tab) 1 Tablets By Mouth 2 times a day Chronic sinusitis Duration: 10 Days Pickup at [facility]/pharmacy #[id number] New methylPREDNISolone (Medrol 4 mg Tab) 1 Packets By Mouth As Directed Chronic sinusitis Duration: 6 Days as directed on package labeling Pickup at [facility]/pharmacy #[id number] Unchanged atorvastatin (atorvastatin 10 mg Tab) 1 Tablets By Mouth Every day 10 Unknown, ORAL, 0 Refill(s) Unchanged lisinopril (lisinopril 10 mg Tab) 1 Tablets By Mouth Every day Unknown, 0 Refill(s) Unchanged loratadine (loratadine 10 mg Tab) 10 Unknown, ORAL, 0 Refill(s) Unchanged meloxicam (meloxicam 15 mg Tab) 1 Tablets By Mouth Every day Unchanged omeprazole (omeprazole 40 mg Cap-DR) 1 Capsules By Mouth Every day Acid reflux BMI 37.0-37.9, adult Non-smoker Pharmacy Information [facility]/pharmacy #[id number]: [address], [place] [phone] Allergies No Known Allergies Problems Ongoing - Any problem that you are currently receiving treatment for. Acid reflux Back pain Bloody stool BMI 38.0-38.9,adult Dizziness Essential hypertension Fluid level behind tympanic membrane of both ears Gastroenteritis Hearing loss Hyperlipidemia Right otitis media Seasonal allergies Sinusitis Tinnitus Patient Survey You may receive a survey via text or e-mail asking about your office visit. Please share your experience with us by completing your survey. We appreciate your feedback and thank you for choosing us for your care. [facility] Ambulatory Visit Summary Ambulatory Visit Summary GILLIAN ARROYO :1970 Visit Date:03/28/2024 Ambulatory Visit Instructions Your Diagnosis Chronic sinusitis Your Care Team Attending Physician - ALESHA HUSTON CNP Primary Care Physician - Keila House This Is Your Medications List amoxicillin-clavulanate (Augmentin 875 mg-125 mg Tab) atorvastatin (atorvastatin 10 mg Tab) lisinopril (lisinopril 10 mg Tab) loratadine (loratadine 10 mg Tab) meloxicam (meloxicam 15 mg Tab) methylPREDNISolone (Medrol 4 mg Tab) omeprazole (omeprazole 40 mg Cap-DR) Procedures Performed Surgery, Surgery. Discharge Vitals Temperature (Temporal Artery) 36.8 ?C Heart Rate (Peripheral) 90 Respiratory Rate 16 Blood Pressure 134/86 Height 177 cm Height 70 in Weight 122.1 kg Weight 268.62 lb BMI 38.97 Medications What How Much When Why Instructions New amoxicillin-clavulanate (Augmentin 875 mg-125 mg Tab) 1 Tablets By Mouth 2 times a day Chronic sinusitis Duration: 10 Days Pickup at [facility]/pharmacy #[id number] New methylPREDNISolone (Medrol 4 mg Tab) 1 Packets By Mouth As Directed Chronic sinusitis Duration: 6 Days as directed on package labeling Pickup at [facility]/pharmacy #[id number] Unchanged atorvastatin (atorvastatin 10 mg Tab) 1 Tablets By Mouth Every day 10 Unknown, ORAL, 0 Refill(s) Unchanged lisinopril (lisinopril 10 mg Tab) 1 Tablets By Mouth Every day Unknown, 0 Refill(s) Unchanged loratadine (loratadine 10 mg Tab) 10 Unknown, ORAL, 0 Refill(s) Unchanged meloxicam (meloxicam 15 mg Tab) 1 Tablets By Mouth Every day Unchanged omeprazole (omeprazole 40 mg Cap-DR) 1 Capsules By Mouth Every day Acid reflux BMI 37.0-37.9, adult Non-smoker Pharmacy Information [facility]/pharmacy #[id number]: [address], [place] [phone] Allergies No Known Allergies Problems Ongoing - Any problem that you are currently receiving treatment for. Acid reflux Back pain Bloody stool BMI 38.0-38.9,adult Dizziness Essential hypertension Fluid level behind tympanic membrane of both ears Gastroenteritis Hearing loss Hyperlipidemia Right otitis media Seasonal allergies Sinusitis Tinnitus Patient Survey You may receive a survey via text or e-mail asking about your office visit. Please share your experience with us by completing your survey. We appreciate your feedback and thank you for choosing us for your care. [facility] Family Medicine Office/Clini c Noteon 03-28-2024 Family Medicine Office/Clinic Note Family Medicine Office/Clinic Note HPI Staff Gillian is a 54 year old male presenting with headache, back pain and pressure Headaches: Time of Onset: he can't say Location: not addressed frontal, eyeballs and back of head, thinks sinus _ _ Typical headache frequency: at least once a month Prior headache work-up: MRI showed sinusitis and rhinitis_ _ History of Present Illness 54 year old patient of GIANCARLO El presents today for an acute visit for evaluation of headache and facial pain. [facility] that he has chronic [facility]. He states he has been having a headache and facial pain for the past 10 days. He denies fever, nausea, and vomiting. He states he did try some acetaminophen yesterday but he has not taken any today. Review of Systems PHQ Score Initial Depression Screen Score: 0 SCORE Constitutional: no fever, no chills, no sweats, no weakness Skin: no Jaundice, no rash, no lesions, nopetechiae ENMT: no ear pain, no sore throat, no congestion, no hoarseness Respiratory: no shortness of breath, no cough, no orthopnea, no wheezing Cardiovascular: no chest pain, no palpitations, no edema Gastrointestinal: no nausea, no vomiting, no diarrhea, no GI bleeding Genitourinary: no dysuria, no hematuria, no discharge, no pain Musculoskeletal: no back pain, no trauma Neurologic: no headache, no dizziness, no numbness, no weakness Psychiatric: no sleeping problems, no irritability, no mood swings/depression. Heme/Lymph: no bleeding tendency, no bruising tendency, no petechiae, no swollen nodes Allergy/Immunologic: no seasonal allergies, no food allergies, no recurrent infections, no impaired immunity Additional ROS info: Except as noted in the above Review of Systems and in the History of Present Illness all other systems have been reviewed and are negative or noncontributory. Physical Exam Vitals & Measurements T: 36.8 ?C(Temporal Artery) HR: 90(Peripheral) RR: 16 BP: 134/86 SpO2: 95% HT: 70 in HT: 177 cm WT: 122.1 kg WT: 268.62 lb BMI: 38.97 General: alert, no acute distress Skin: warm, dry Head: no trauma, normocephalic Neck: Trachea midline, no adenopathy, no tenderness Eye: normal conjunctiva, sclera clear ENMT: TM's clear, oral mucosa moist, yes pharyngeal erythema or exudate; bilateral nasal passages erythematous & edematous, maxillary sinus tenderness with palpation. Cardiovascular: regular rate and rhythm, normal peripheral perfusion Respiratory: Lungs CTA, respirations non labored Neurological: oriented x 4, LOC appropriate for age speech normal Psychiatric: cooperative, affect appropriate for age, normal judgement, normal psychiatric thoughts. Assessment/Plan 1. Chronic sinusitis (J32.9: Chronic sinusitis, unspecified) Encouraged to take acetaminophen for headache as needed May consider referral to ENT if no improvement in 10 days [facility] if no improvement with pcp Ordered: amoxicillin-clavulanate , 1 tab(s), Oral, BID for 10 day(s), 20 tab(s), Refill(s) 0, [id number], 177, cm, 03/28/24 15:06:00 EDT, Height/Length Dosing, 122.1, kg, 03/28/24 15:06:00 EDT, Weight Dosing methylPREDNISolone, = 1 packet(s), Oral, As Directed, as directed on package labeling, X 6 day(s), # 21 tab(s), Refills(s) 0, Pharmacy: [facility]/pharmacy #[id number], 177, cm, 03/28/24 15:06:00 EDT, Height/Length Dosing, 122.1, kg, 03/28/24 15:06:00 EDT, Weight Dosing Follow-up With When Contact Information ALESHA HUSTON CNP, [place] Additional Instructions: Patient Education Sinus Infection, Adult, Amte-gw-Kgox Problem List/Past Medical History Ongoing Acid reflux Back pain Bloody stool BMI 38.0-38.9,adult Dizziness Essential hypertension Fluid level behind tympanic membrane of both ears Gastroenteritis Hearing loss Hyperlipidemia Right otitis media Seasonal allergies Sinusitis Tinnitus Historical No qualifying data Procedure/Surgical History Surgery, Surgery. Medications atorvastatin 10 mg Tab, 10 mg= 1 tab(s), Oral, Daily Augmentin 875 mg-125 mg Tab, 1 tab(s), Oral, BID lisinopril 10 mg Tab, 10 mg= 1 tab(s), Oral, Daily loratadine 10 mg Tab Medrol 4 mg Tab, 1 packet(s), Oral, As Directed meloxicam 15 mg Tab, 15 mg= 1 tab(s), Oral, Daily omeprazole 40 mg Cap-DR, 40 mg= 1 cap(s), Oral, Daily, 1 refills Allergies No Known Allergies Social History Tobacco Former smoker, quit more than 30 days ago Tobacco Use:. Never Smokeless Tobacco Use:. Cigarettes, Household tobacco concerns: No., 03/28/2024 Family History Cancer: Father. Diabetes mellitus type 2: Mother. Immunizations Vaccine Date Status diphtheria/pertussis, acel/tetanus adult 11/03/2023 Recorded influenza virus vaccine, inactivated 06/26/2023 Recorded zoster vaccine, inactivated 11/14/2022 Recorded SARS-CoV-2 (COVID-19) [id number] 10/04/2022 Recorded influenza virus vacc (more content not included)... [facility] Comment on above: Result Comment: Elec tronically Signed By: ALESHA HUSTON CNP\.br\Date and Time Signed: 03/28/24 15:40 EDT Provider Letteron 03-28-2024 Provider Letter Provider Letter March 28, 2024 GILLIAN ARROYO [id number] [id number] : 1970 To Whom It May Concern, Please excuse above patient from work due to medical Date of Illness: From: _03-27-24 To: _03-28-24 May Return to Work On:03-29-24 Restrictions: _ Comments: _ Sincerely, Family Medicine [address] [address] [facility] Ambulatory Visit Summaryon 0 03-15-2024 Ambulatory Visit Summary Ambulatory Visit Summary GILLIAN ARROYO :1970 Visit Date:03/15/2024 Ambulatory Visit Instructions Your Diagnosis Lumbago without sciatica Your Care Team Attending Physician - Nanette Ross Primary Care Physician - Keila House This Is Your Medications List atorvastatin (atorvastatin 10 mg Tab) cyclobenzaprine (cyclobenzaprine 5 mg Tab) lisinopril (lisinopril 10 mg Tab) loratadine (loratadine 10 mg Tab) meloxicam (meloxicam 15 mg Tab) omeprazole (omeprazole 40 mg Cap-DR) Procedures Performed Surgery, Surgery. Discharge Vitals Heart Rate (Peripheral) 97 Blood Pressure 120/76 Height 177 cm Height 70 in Weight 122 kg Weight 268.4 lb BMI 38.94 Medications What How Much When Why Instructions New cyclobenzaprine (cyclobenzaprine 5 mg Tab) 1 Tablets By Mouth At bedtime Lumbago without sciatica Duration: 7 Days Pickup at [facility]/pharmacy #[id number] Unchanged atorvastatin (atorvastatin 10 mg Tab) 1 Tablets By Mouth Every day 10 Unknown, ORAL, 0 Refill(s) Unchanged lisinopril (lisinopril 10 mg Tab) 1 Tablets By Mouth Every day Unknown, 0 Refill(s) Unchanged loratadine (loratadine 10 mg Tab) 10 Unknown, ORAL, 0 Refill(s) Unchanged meloxicam (meloxicam 15 mg Tab) 1 Tablets By Mouth Every day Unchanged omeprazole (omeprazole 40 mg Cap-DR) 1 Capsules By Mouth Every day Acid reflux BMI 37.0-37.9, adult Non-smoker Pharmacy Information [id number]: [address], [place] [phone] Allergies No Known Allergies Problems Ongoing - Any problem that you are currently receiving treatment for. Acid reflux Back pain Bloody stool BMI 38.0-38.9,adult Dizziness Essential hypertension Fluid level behind tympanic membrane of both ears Gastroenteritis Hearing loss Hyperlipidemia Right otitis media Seasonal allergies Sinusitis Tinnitus Patient Survey You may receive a survey via text or e-mail asking about your office visit. Please share your experience with us by completing your survey. We appreciate your feedback and thank you for choosing us for your care. [facility] Medicine Office/Clini c Noteon 03-15-2024 Family Medicine Office/Clinic Note Family Medicine Office/Clinic Note Chief Complaint low back pain HPI Staff 54 year old male present for lower back pain. Pt states he has herniated discs, used to take Cyclobenzaprine for this. Pt is also taking Meloxicam. Pt states the pain is constant but today is worse than normal. Pt is currently wearing back brace. Pt missed worked today. History of Present Illness I have reviewed and verified the staff HPI to be accurate for this encounter. Portions of this record have been created with voice recognition software. Occasional wrong-word or ?[id number]? substitutions may have occurred due to the inherent limitations of voice recognition software. 54-year-old male presents with complaints of tightness in his low back. He explains that [facility]. He was unable to get in with them and he is out of his cyclobenzaprine that he takes at bedtime. He also did not go to work today due to discomfort and would like a work note Review of Systems PHQ Score Initial Depression Screen Score: 0 SCORE ROS negative unless otherwise stated in HPI. Physical Exam Vitals & Measurements HR: 97(Peripheral) BP: 120/76 HT: 70 in HT: 177 cm WT: 122 kg WT: 268.4 lb BMI: 38.94 General: Well developed, well nourished, in no acute distress male, overweight Eyes: not assessed Ears: not assessed Nose: not addressed Mouth: not assessed Neck: not assessed Lungs: Normal respiratory effort and clear to auscultation Cardio: regular rate and rhythm, no murmur Abdomen: not assessed Musculoskeletal: Patient is wearing lumbar back brace, full range of motion Extremity: No clubbing, cyanosis, edema, or deformity, with normal ROM in both upper and lower bilateral extremities Neurologic: Grossly normal denies any loss of bowel or bladder function Skin: not assessed Mental Status: Alert and oriented x3. Normal mood and affect Assessment/Plan Patient explains he would just like a refill of his cyclobenzaprine to hold him until he can be seen by his provider at the [facility] prescribes his medications for chronic back pain. He is requesting a work note which can be provided for today. As he is off the next few days for the holiday. Plans to [facility] for future [facility] refills. He verbalized understanding and agreement with this plan. 1. Lumbago without sciatica (M54.50: Low back pain, unspecified) Patient provided a 7-day supply of cyclobenzaprine 5 mg to take at bedtime as needed for muscle spasms and discomfort. Plans to follow-up with provider at the [facility] for further refills of this medication. Ordered: cyclobenzaprine, 5 mg = 1 tab(s), Oral, Bedtime, X 7 day(s), # 7 tab(s), Refills(s) 0, Pharmacy: [facility]/pharmacy #[id number], 177, cm, 03/15/24 13:18:00 EDT, Height/Length Dosing, 122, kg, 03/15/24 13:18:00 EDT, Weight Dosing 2. BMI 38.0-38.9,adult (Z68.38: Body mass index [BMI] 38.0-38.9, adult) The standard range for ages 18 and older is >=18.5 and < 25 kg/m2. Your BMI today was above this range, this falls in the overweight to obese category and there are medical benefits to weight loss. We can offer counselling, referral, and/or medical support in addressing this problem. Your BMI and weight management will be followed at subsequent visits. 3. Obesity (E66.9: Obesity, unspecified) Encouraged healthy diet and exercise. Follow-up No qualifying data available Patient Education MyPlate from [employer] MyPlate from [employer] Exercising to Lose Weight BMI for Adults Chronic Back Pain, Igbl-xi-Xgzd Exercising to Lose Weight BMI for Adults Chronic Back Pain, Urvi-hb-Mhqj Problem List/Past Medical History Ongoing Acid reflux Back pain Bloody stool BMI 38.0-38.9,adult Dizziness Essential hypertension Fluid level behind tympanic membrane of both ears Gastroenteritis Hearing loss Hyperlipidemia Right otitis media Seasonal allergies Sinusitis Tinnitus Historical No qualifying data Procedure/Surgical History Surgery, Surgery. Medications atorvastatin 10 mg Tab, 10 mg= 1 tab(s), Oral, Daily cyclobenzaprine 5 mg Tab, 5 mg= 1 tab(s), Oral, Bedtime lisinopril 10 mg Tab, 10 mg= 1 tab(s), Oral, Daily loratadine 10 mg Tab meloxicam 15 mg Tab, 15 mg= 1 tab(s), Oral, Daily omeprazole 40 mg Cap-DR, 40 mg= 1 cap(s), Oral, Daily, 1 refills Allergies No Known Allergies Social History Tobacco Former smoker, quit more than 30 days ago Tobacco Use:. Never Smokeless Tobacco Use:. Cigarettes, Household tobacco concerns: No., 03/15/2024 Family History Cancer: Father. Diabetes mellitus type 2: Mother. Immunizations Vaccine Date Status diphtheria/pertussis, acel/tetanus adult 11/03/2023 Recorded influenza virus vaccine, inactivated 06/26/2023 Recorded zoster vaccine, inactivated 11/14/2022 Recorded SARS-CoV-2 (COVID-19) [id number] 10/04/2022 Recorded influenza virus vaccine, inactivated (more content not included)... [facility] Comment on above: Result Comment: Elec tronically Signed By: Nanette Ross\.br\Date and Time Signed: 03/15/24 19:32 EDT Family Medicine Office/Clinic Note Family Medicine Office/Clinic Note Chief Complaint low back pain HPI Staff 54 year old male present for lower back pain. Pt states he has herniated discs, used to take Cyclobenzaprine for this. Pt is also taking Meloxicam. Pt states the pain is constant but today is worse than normal. Pt is currently wearing back brace. Pt missed worked today. History of Present Illness I have reviewed and verified the staff HPI to be accurate for this encounter. Portions of this record have been created with voice recognition software. Occasional wrong-word or ?[id number]-[id number]? substitutions may have occurred due to the inherent limitations of voice recognition software. Patient states he is out of his cyclobenzaprine. He states he has history of chronic low back pain and wears a brace. [facility] but was not able to get a hold of the to prescribe it before he needs his next dose. Denies any other complaints or concerns. Patient states eyes are red due to allergies. Denies any pain, itching or draining from the eyes. Needs work excuse. Review of Systems PHQ Score Initial Depression Screen Score: 0 SCORE ROS negative unless otherwise stated in HPI. Physical Exam Vitals & Measurements HR: 97(Peripheral) BP: 120/76 HT: 70 in HT: 177 cm WT: 122 kg WT: 268.4 lb BMI: 38.94 General: Obese looking male Eyes: not assessed Ears: Mildly injected sclera bilaterally, no drainage, no edema Nose: mild nasal mucosa inflammation and edema Mouth: not assessed Neck: not assessed Lungs: Normal respiratory effort and clear to auscultation Cardio: regular rate and rhythm, no murmur Abdomen: not assessed Musculoskeletal: No deformity or scoliosis noted. Normal range of motion. Joints normal. No erythema, edema, effusion, or ecchymosis Extremity: No clubbing, cyanosis, edema, or deformity, with normal ROM in both upper and lower bilateral extremities Neurologic: Grossly normal Skin: No rashes, ulcerations, or suspicious lesions Mental Status: Alert and oriented x3. Normal mood and affect Assessment/Plan Cussed with patient that I would be comfortable with sending a 7-day supply of cyclobenzaprine 5 mg to use at bedtime. Patient is agreeable with this plan. Will follow-up with [facility] physician for further refills. 1. Lumbago without sciatica (M54.50: Low back pain, unspecified) See above Ordered: cyclobenzaprine, 5 mg = 1 tab(s), Oral, Bedtime, X 7 day(s), # 7 tab(s), Refills(s) 0, Pharmacy: [facility]/pharmacy #[id number], 177, cm, 03/15/24 13:18:00 EDT, Height/Length Dosing, 122, kg, 03/15/24 13:18:00 EDT, Weight Dosing 2. BMI 38.0-38.9,adult (Z68.38: Body mass index [BMI] 38.0-38.9, adult) The standard range for ages 18 and older is >=18.5 and < 25 kg/m2. Your BMI today was above this range, this falls in the overweight to obese category and there are medical benefits to weight loss. We can offer counselling, referral, and/or medical support in addressing this problem. Your BMI and weight management will be followed at subsequent visits. 3. Obesity (E66.9: Obesity, unspecified) Encouraged healthy diet and exercise. Follow-up No qualifying data available Patient Education Exercising to Lose Weight BMI for Adults Chronic Back Pain, Brvw-gd-Kngm Problem List/Past Medical History Ongoing Acid reflux Back pain Bloody stool BMI 38.0-38.9,adult Dizziness Essential hypertension Fluid level behind tympanic membrane of both ears Gastroenteritis Hearing loss Hyperlipidemia Right otitis media Seasonal allergies Sinusitis Tinnitus Historical No qualifying data Procedure/Surgical History Surgery, Surgery. Medications atorvastatin 10 mg Tab, 10 mg= 1 tab(s), Oral, Daily cyclobenzaprine 5 mg Tab, 5 mg= 1 tab(s), Oral, Bedtime lisinopril 10 mg Tab, 10 mg= 1 tab(s), Oral, Daily loratadine 10 mg Tab meloxicam 15 mg Tab, 15 mg= 1 tab(s), Oral, Daily omeprazole 40 mg Cap-DR, 40 mg= 1 cap(s), Oral, Daily, 1 refills Allergies No Known Allergies Social History Tobacco Former smoker, quit more than 30 days ago Tobacco Use:. Never Smokeless Tobacco Use:. Cigarettes, Household tobacco concerns: No., 03/15/2024 Family History Cancer: Father. Diabetes mellitus type 2: Mother. Immunizations Vaccine Date Status diphtheria/pertussis, acel/tetanus adult 11/03/2023 Recorded influenza virus vaccine, inactivated 06/26/2023 Recorded zoster vaccine, inactivated 11/14/2022 Recorded SARS-CoV-2 (COVID-19) [id number] 10/04/2022 Recorded influenza virus vaccine, inactivated 06/14/2022 Recorded SARSCoV2 mRNA([id number] ros) vac 03/04/2022 Recorded zoster vaccine, inactivated 09/04/2021 Recorded SARS-CoV-2 (COVID-19) mRNA BNT-162b2 vax 08/22/2021 Recorded influenza virus vaccine, inactivated 06/30/2021 Recorded influenza virus vaccine, inactivated 07/17/2019 Recorded influenza virus vaccine, inactivated 05/28/2017 Recorded influenza virus vaccine, inact (more content not included)... [facility] Comment on above: Result Comment: Elec tronically Signed By: Navdeep BAR, Nanette\.br\Date and Time Signed: 03/15/24 18:28 EDT Patient Letter FTon 2023 Patient Letter [facility] Patient Letter [facility] [address] [place] [address], [place] [phone] March 15, 2024 GILLIAN ARROYO [address] [place] [id number] : 1970 Please excuse GILLIAN ARROYO from work . Date and/or Time of Absence: From: 03/15/24 To: 03/16/24 May return to work on: 03/16/24 Restrictions: None Comments: Please excuse due to an acute illness. Provider Signature: DIPIKA Carter Nurse Practitioner [facility] [address] [facility] [facility] [place] [address] [facility] Ambulatory Visit Summaryon 0 02-28-2024 Ambulatory Visit Summary DINAGILLIAN :1970 Visit Date:02/28/2024 Ambulatory Visit Instructions Your Diagnosis BMI 39.0-39.9,adult Non-smoker Fluid level behind tympanic membrane of both ears Seasonal allergies Your Care Team Attending Physician - Keila House Primary Care Physician - Keila House This Is Your Medications List atorvastatin (atorvastatin 10 mg Tab) lisinopril (lisinopril 10 mg Tab) loratadine (loratadine 10 mg Tab) meloxicam (meloxicam 15 mg Tab) methylPREDNISolone (Medrol 4 mg Tab) omeprazole (omeprazole 40 mg Cap-DR) Procedures Performed Surgery, Surgery. Discharge Vitals Temperature (Tympanic) 36.5 ?C Heart Rate (Peripheral) 100 Respiratory Rate 18 Blood Pressure 152/96 Height 177.0 cm Height 70 in Weight 122.6 kg Weight 269.72 lb BMI 39.13 Medications What How Much When Why Instructions New methylPREDNISolone (Medrol 4 mg Tab) 1 Packets By Mouth As Directed BMI 39.0-39.9,adult Non-smoker Fluid level behind tympanic membrane of both ears Seasonal allergies Duration: 6 Days as directed on package labeling Pickup at [facility]/pharmacy #[id number] Unchanged atorvastatin (atorvastatin 10 mg Tab) 1 Tablets By Mouth Every day 10 Unknown, ORAL, 0 Refill(s) Unchanged lisinopril (lisinopril 10 mg Tab) 1 Tablets By Mouth Every day Unknown, 0 Refill(s) Unchanged loratadine (loratadine 10 mg Tab) 10 Unknown, ORAL, 0 Refill(s) Unchanged meloxicam (meloxicam 15 mg Tab) 1 Tablets By Mouth Every day Unchanged omeprazole (omeprazole 40 mg Cap-DR) 1 Capsules By Mouth Every day Acid reflux BMI 37.0-37.9, adult Non-smoker Pharmacy Information [facility]/pharmacy #[id number]: [address], [place] [phone] Allergies No Known Allergies Problems Ongoing - Any problem that you are currently receiving treatment for. Acid reflux Back pain Bloody stool BMI 38.0-38.9,adult Dizziness Essential hypertension Fluid level behind tympanic membrane of both ears Gastroenteritis Hearing loss Hyperlipidemia Right otitis media Seasonal allergies Sinusitis Tinnitus Patient Survey You may receive a survey via text or e-mail asking about your office visit. Please share your experience with us by completing your survey. We appreciate your feedback and thank you for choosing us for your care. Padmini [facility] Family Medicine Office/Clini c Noteon 02-28-2024 Family Medicine Office/Clinic Note HPI Staff Gillian is a 54 year old male presenting for sick visit Respiratory C/O: Onset: 4 days ago Body aches: no Chest congestion: no Chills: no Cough: yes Sputum production: no Sore throat: no Ear complaints: no Eye itching/watering: yes Fever: no Headache: yes Nasal congestion: yes Nasal discharge: yes Poor appetite: no Reduced activity: no Sinus pain/pressure: yes Sneezing: no Wheezing: no Ill contacts: no Remedies tried: Loratadine Questions/Concerns: History of Present Illness pt c/o allergy symptoms Review of Systems PHQ Score Initial Depression Screen Score: 0 SCORE Physical Exam Vitals & Measurements T: 36.5 ?C(Tympanic) HR: 100(Peripheral) RR: 18 BP: 152/96 HT: 70 in HT: 177.0 cm WT: 122.6 kg WT: 269.72 lb BMI: 39.13 General: alert, no acute distress ENMT: oral mucosa moist, no pharyngeal erythema or exudate Cardiovascular: regular rate and rhythm, normal peripheral perfusion Respiratory: Lungs CTA, respirations non labored Extremities: no deformity, no trauma Neurological: oriented x 4, LOC appropriate for age, CN II-XII intact, motor strength equal & normal bilaterally, speech normal Assessment/Plan 1. Fluid level behind tympanic membrane of both ears (H65.93: Unspecified nonsuppurative otitis media, bilateral) KAITLIN TM full of clear fluid. will send medrol dose pack Ordered: methylPREDNISolone, = 1 packet(s), Oral, As Directed, as directed on package labeling, X 6 day(s), # 21 tab(s), Refills(s) 0, Pharmacy: [facility]/pharmacy #[id number], 177, cm, 02/28/24 11:54:00 EDT, Height/Length Dosing, 122.6, kg, 02/28/24 11:54:00 EDT, Weight Dosing 2. Seasonal allergies (J30.2: Other seasonal allergic rhinitis) pt to continue allergy medication daily Ordered: methylPREDNISolone, = 1 packet(s), Oral, As Directed, as directed on package labeling, X 6 day(s), # 21 tab(s), Refills(s) 0, Pharmacy: [facility]/pharmacy #[id number], 177, cm, 02/28/24 11:54:00 EDT, Height/Length Dosing, 122.6, kg, 02/28/24 11:54:00 EDT, Weight Dosing 3. Non-smoker (Z78.9: Other specified health status) continue not smoking Ordered: methylPREDNISolone, = 1 packet(s), Oral, As Directed, as directed on package labeling, X 6 day(s), # 21 tab(s), Refills(s) 0, Pharmacy: [facility]/pharmacy #[id number], 177, cm, 02/28/24 11:54:00 EDT, Height/Length Dosing, 122.6, kg, 02/28/24 11:54:00 EDT, Weight Dosing 4. BMI 39.0-39.9,adult (Z68.39: Body mass index [BMI] 39.0-39.9, adult) BMI education complete Ordered: methylPREDNISolone, = 1 packet(s), Oral, As Directed, as directed on package labeling, X 6 day(s), # 21 tab(s), Refills(s) 0, Pharmacy: [facility]/pharmacy #[id number], 177, cm, 02/28/24 11:54:00 EDT, Height/Length Dosing, 122.6, kg, 02/28/24 11:54:00 EDT, Weight Dosing Follow-up No qualifying data available Problem List/Past Medical History Ongoing Acid reflux Back pain Bloody stool BMI 38.0-38.9,adult Dizziness Essential hypertension Fluid level behind tympanic membrane of both ears Gastroenteritis Hearing loss Hyperlipidemia Right otitis media Seasonal allergies Sinusitis Tinnitus Historical No qualifying data Procedure/Surgical History Surgery, Surgery. Medications atorvastatin 10 mg Tab, 10 mg= 1 tab(s), Oral, Daily lisinopril 10 mg Tab, 10 mg= 1 tab(s), Oral, Daily loratadine 10 mg Tab Medrol 4 mg Tab, 1 packet(s), Oral, As Directed meloxicam 15 mg Tab, 15 mg= 1 tab(s), Oral, Daily omeprazole 40 mg Cap-DR, 40 mg= 1 cap(s), Oral, Daily, 1 refills Allergies No Known Allergies Social History Tobacco Former smoker, quit more than 30 days ago Tobacco Use:. Cigarettes, Household tobacco concerns: No., 02/28/2024 Family History Cancer: Father. Diabetes mellitus type 2: Mother. Immunizations Vaccine Date Status influenza virus vaccine, inactivated 06/26/2023 Recorded zoster vaccine, inactivated 11/14/2022 Recorded SARS-CoV-2 (COVID-19) [id number].[id number] 10/04/2022 Recorded influenza virus vaccine, inactivated 06/14/2022 Recorded SARSCoV2 mRNA(esizprihf-buat-wkx ros) vac 03/04/2022 Recorded zoster vaccine, inactivated 09/04/2021 Recorded SARS-CoV-2 (COVID-19) mRNA BNT-162b2 vax 08/22/2021 Recorded influenza virus vaccine, inactivated 06/30/2021 Recorded influenza virus vaccine, inactivated 07/17/2019 Recorded influenza virus vaccine, inactivated 05/28/2017 Recorded influenza virus vaccine, inactivated 06/23/2016 Recorded Normal [facility] Comment on above: Result Comment: Elec tronically Signed By: Mariah NEWELL, Keila Beltran\.br\Date and Time Signed: 02/28/24 12:32 EDT Provider Letteron 02-28-2024 Provider Letter (Inserted Image. Shanell ble to display) February 28, 2024 GILLIAN ARROYO [id number] [id number] : 1970 To Whom It May Concern, Please excuse above patient from work. Date of Illness: From: _02-28-24 To: _02-28-24 May Return to Work On:02-29-24 Restrictions: _ Comments: _ Sincerely, Family Medicine [address] [address] [facility] XR KNEE 1-2 VIEWS RIGHTon XR KNEE 1-2 VIEWS RIGHT FINDINGS: Minimal medial and patellofemoral joint space reduction is seen. No effusion or acute fracture is identified. Tibial plateaus are maintained in height. No significant osteophyte formation is present. Menisci are non-calcified. IMPRESSION: Minimal arthritis TRANSCRIBED BY: ELECTRONICALLY SIGNED BY: Jose Farley MD Normal Not Available Comment on above: Order Comment: [employer] SELF PAY BUT NO PAYMENT COLLECTION XR PARANASAL SINUSES 3+ VIEW Son 02-09-2024 XR PARANASAL SINUSES 3+ VIEWS FINDINGS: Normal paranasal sinus development. Mild asymmetric soft tissue density left maxillary sinus floor, possible mucous retention cyst formation. No significant layering fluid. Minimal nasal septal deviation. No fracture. IMPRESSION: Left maxillary findings, probable postinflammatory sequela, mucous retention cyst TRANSCRIBED BY: ELECTRONICALLY SIGNED BY: Jose Farley MD Normal Not Available Comment on above: Order Comment: OF[employer]IA SELF PAY BUT NO PAYMENT COLLECTION XR THORACIC SPINE 2 VIEWSon 02-09-2024 XR THORACIC SPINE 2 VIEWS FINDINGS: No scoliosis. Minimal anterior wedging distal thoracic spine, unlikely acute. Normal vertebral body alignment. Minimal disc base loss lower thoracic region with mild endplate sclerosis. IMPRESSION: 1. Mild arthritis, normal alignment 2. No significant fracture TRANSCRIBED BY: ELECTRONICALLY SIGNED BY: Jose Farley MD Normal Not Available Comment on above: Order Comment: [employer] SELF PAY BUT NO PAYMENT COLLECTION Family Medicine Office/Clini c Noteon 01-31-2024 Family Medicine Office/Clinic Note HPI Staff Gillian is a 53 year old male presenting for acute visit Onset: 1 week started having dizziness and light headed, last night Pt started having stomach pain c/o red blood in stool. Denies any diarrhea. Pt states stomach pain/cramping is getting better. Pt had colonoscopy 3 years ago History of Present Illness pt presents today for dizziness and bloody stool Review of Systems PHQ Score Initial Depression Screen Score: 0 SCORE Physical Exam Vitals & Measurements HR: 84(Peripheral) RR: 18 BP: 126/70 SpO2: 94% HT: 70 in HT: 177.0 cm WT: 121.6 kg WT: 267.52 lb BMI: 38.81 General: alert, no acute distress ENMT: oral mucosa moist, no pharyngeal erythema or exudate Cardiovascular: regular rate and rhythm, normal peripheral perfusion Respiratory: Lungs CTA, respirations non labored Extremities: no deformity, no trauma Neurological: oriented x 4, LOC appropriate for age, CN II-XII intact, motor strength equal & normal bilaterally, speech normal Assessment/Plan 1. Dizziness (R42: Dizziness and giddiness) pt had dizziness yesterday while working outside in the heat. he came in and hydrated and felt better 2. Bloody stool (K92.1: Melena) this morning he woke up with stomach cramping and felt constipated. when he had a bowl movement today and had bright red blood in the toilet. pt is feeling better now and declines any further testing. 3. BMI 38.0-38.9,adult (Z68.38: Body mass index [BMI] 38.0-38.9, adult) Follow-up No qualifying data available Problem List/Past Medical History Ongoing Acid reflux Back pain Bloody stool BMI 38.0-38.9,adult Dizziness Essential hypertension Fluid level behind tympanic membrane of both ears Gastroenteritis Hearing loss Hyperlipidemia Right otitis media Seasonal allergies Sinusitis Tinnitus Historical No qualifying data Procedure/Surgical History Surgery, Surgery. Medications atorvastatin 10 mg Tab, 10 mg= 1 tab(s), Oral, Daily lisinopril 10 mg Tab, 10 mg= 1 tab(s), Oral, Daily loratadine 10 mg Tab meloxicam 15 mg Tab, 15 mg= 1 tab(s), Oral, Daily omeprazole 40 mg Cap-DR, 40 mg= 1 cap(s), Oral, Daily, 1 refills Allergies No Known Allergies Social History Tobacco Former smoker, quit more than 30 days ago Tobacco Use:. Cigarettes, Household tobacco concerns: No., 01/31/2024 Family History Cancer: Father. Diabetes mellitus type 2: Mother. Immunizations Vaccine Date Status influenza virus vaccine, inactivated 06/26/2023 Recorded zoster vaccine, inactivated 11/14/2022 Recorded SARS-CoV-2 (COVID-19) [id number].[id number] 10/04/2022 Recorded influenza virus vaccine, inactivated 06/14/2022 Recorded SARSCoV2 mRNA(stqtzxzwp-xgzj-scg ros) vac 03/04/2022 Recorded zoster vaccine, inactivated 09/04/2021 Recorded SARS-CoV-2 (COVID-19) mRNA BNT-162b2 vax 08/22/2021 Recorded influenza virus vaccine, inactivated 06/30/2021 Recorded influenza virus vaccine, inactivated 07/17/2019 Recorded influenza virus vaccine, inactivated 05/28/2017 Recorded influenza virus vaccine, inactivated 06/23/2016 Recorded Normal [facility] Comment on above: Result Comment: Elec tronically Signed By: Keila House\.br\Date and Time Signed: 01/31/24 13:55 EDT Provider Letteron 01-31-2024 Provider Letter (Inserted Image. Shanell ble to display) January 31, 2024 GILLIAN ARROYO [address] [place] [id number] : 1970 To Whom It May Concern, Please excuse above patient from work due to medical. Date of Illness: From: _ To: _ May Return to Work On:02-01-24 Restrictions: _NONE Comments: _ Sincerely, [place] [address] [facility] Ambulatory Visit Summaryon 0 01-10-2024 Ambulatory Visit Summary DINA GILLIAN :1970 Visit Date:01/10/2024 Ambulatory Visit Instructions Your Diagnosis Back pain Your Care Team Attending Physician - Keila House Primary Care Physician - Keila House This Is Your Medications List atorvastatin (atorvastatin 10 mg Tab) lisinopril (lisinopril 10 mg Tab) loratadine (loratadine 10 mg Tab) meloxicam (meloxicam 15 mg Tab) omeprazole (omeprazole 40 mg Cap-DR) Procedures Performed Surgery, Surgery. Discharge Vitals Heart Rate (Peripheral) 92 Respiratory Rate 18 Blood Pressure 140/86 Height 177.0 cm Height 70 in Weight 120.1 kg Weight 264.22 lb BMI 38.34 Medications What How Much When Why Instructions Unchanged atorvastatin (atorvastatin 10 mg Tab) 1 Tablets By Mouth Every day 10 Unknown, ORAL, 0 Refill(s) Unchanged lisinopril (lisinopril 10 mg Tab) 1 Tablets By Mouth Every day Unknown, 0 Refill(s) Unchanged loratadine (loratadine 10 mg Tab) 10 Unknown, ORAL, 0 Refill(s) Unchanged meloxicam (meloxicam 15 mg Tab) 1 Tablets By Mouth Every day Unchanged omeprazole (omeprazole 40 mg Cap-DR) 1 Capsules By Mouth Every day Acid reflux BMI 37.0-37.9, adult Non-smoker Allergies No Known Allergies Problems Ongoing - Any problem that you are currently receiving treatment for. Acid reflux Back pain Dizziness Essential hypertension Fluid level behind tympanic membrane of both ears Gastroenteritis Hearing loss Hyperlipidemia Right otitis media Seasonal allergies Sinusitis Tinnitus Patient Survey You may receive a survey via text or e-mail asking about your office visit. Please share your experience with us by completing your survey. We appreciate your feedback and thank you for choosing us for your care. Padmini [facility] Family Medicine Office/Clini c Noteon 01-10-2024 Family Medicine Office/Clinic Note HPI Staff Gillian is a 53 year old male presenting for acute visit Pain characteristics: Pain location: middle lower back Intensity:12/21 Onset: Ongoing , flaire up 5 days ago Medication used: back brace Pt has some dizziness this morning that went away. a year ago pt did have Flexeril as needed he has been out of medicine over a year pt states [facility]. Constant aching pain. Pt has been off work since Wednesday and does need a note for work. History of Present Illness pt presents today with bask pain flare up Review of Systems PHQ Score Initial Depression Screen Score: 0 SCORE Physical Exam Vitals & Measurements HR: 92(Peripheral) RR: 18 BP: 140/86 SpO2: 96% HT: 70 in HT: 177.0 cm WT: 120.1 kg WT: 264.22 lb BMI: 38.34 General: alert, no acute distress ENMT: oral mucosa moist, no pharyngeal erythema or exudate Cardiovascular: regular rate and rhythm, normal peripheral perfusion Respiratory: Lungs CTA, respirations non labored Extremities: no deformity, no trauma Neurological: oriented x 4, LOC appropriate for age, CN II-XII intact, motor strength equal & normal bilaterally, speech normal Assessment/Plan 1. Back pain (M54.9: Dorsalgia, unspecified) pt has chronic back pain. he sneezed the other day and threw his back out. had to take muscle relaxer for relief which makes him dizzy. so he did not work wednesday or wednesday. pt will return to work tomorrow. RTC as needed Follow-up No qualifying data available Problem List/Past Medical History Ongoing Acid reflux Back pain Dizziness Essential hypertension Fluid level behind tympanic membrane of both ears Gastroenteritis Hearing loss Hyperlipidemia Right otitis media Seasonal allergies Sinusitis Tinnitus Historical No qualifying data Procedure/Surgical History Surgery, Surgery. Medications atorvastatin 10 mg Tab, 10 mg= 1 tab(s), Oral, Daily lisinopril 10 mg Tab, 10 mg= 1 tab(s), Oral, Daily loratadine 10 mg Tab meloxicam 15 mg Tab, 15 mg= 1 tab(s), Oral, Daily omeprazole 40 mg Cap-DR, 40 mg= 1 cap(s), Oral, Daily, 1 refills Allergies No Known Allergies Social History Tobacco Former smoker, quit more than 30 days ago Tobacco Use:. Cigarettes, Household tobacco concerns: No., 01/10/2024 Family History Cancer: Father. Diabetes mellitus type 2: Mother. Immunizations Vaccine Date Status influenza virus vaccine, inactivated 06/26/2023 Recorded zoster vaccine, inactivated 11/14/2022 Recorded SARS-CoV-2 (COVID-19) [id number] 10/04/2022 Recorded influenza virus vaccine, inactivated 06/14/2022 Recorded SARSCoV2 mRNA(ovxkmvfpw-jtbf-flu ros) vac 03/04/2022 Recorded zoster vaccine, inactivated 09/04/2021 Recorded SARS-CoV-2 (COVID-19) mRNA BNT-162b2 vax 08/22/2021 Recorded influenza virus vaccine, inactivated 06/30/2021 Recorded influenza virus vaccine, inactivated 07/17/2019 Recorded influenza virus vaccine, inactivated 05/28/2017 Recorded influenza virus vaccine, inactivated 06/23/2016 Recorded Normal [facility] Comment on above: Result Comment: Elec tronically Signed By: Keila House\.br\Date and Time Signed: 01/10/24 12:26 EDT Provider Letteron 01-10-2024 Provider Letter (Inserted Image. Shanell ble to display) January 10, 2024 GILLIAN ARROYO [address] [place] [id number] : 1970 To Whom It May Concern, Please excuse above patient from work. Date of Illness: From: 01/07/2024 To: 01/10/2024 May Return to Work On: 01/11/2024 Sincerely, DIPIKA Armenta [place] [id number] [facility] Ambulatory Visit Summaryon 0 12-13-2023 Ambulatory Visit Summary DINA GILLIAN :1970 Visit Date:12/13/2023 Ambulatory Visit Instructions Your Diagnosis Acid reflux BMI 37.0-37.9, adult Non-smoker Your Care Team Attending Physician - Keila House Primary Care Physician - Keila House This Is Your Medications List atorvastatin (atorvastatin 10 mg Tab) lisinopril (lisinopril 10 mg Tab) loratadine (loratadine 10 mg Tab) meloxicam (meloxicam 15 mg Tab) omeprazole (omeprazole 40 mg Cap-DR) Procedures Performed Surgery, Surgery. Discharge Vitals Heart Rate (Peripheral) 78 Respiratory Rate 18 Blood Pressure 124/76 Height 177.0 cm Height 70 in Weight 119.9 kg Weight 263.78 lb BMI 38.27 Medications What How Much When Why Instructions New omeprazole (omeprazole 40 mg Cap-DR) 1 Capsules By Mouth Every day Acid reflux BMI 37.0-37.9, adult Non-smoker Refills: 1 Pickup at [facility]/pharmacy #[id number] Unchanged atorvastatin (atorvastatin 10 mg Tab) 1 Tablets By Mouth Every day 10 Unknown, ORAL, 0 Refill(s) Unchanged lisinopril (lisinopril 10 mg Tab) 1 Tablets By Mouth Every day Unknown, 0 Refill(s) Unchanged loratadine (loratadine 10 mg Tab) 10 Unknown, ORAL, 0 Refill(s) Unchanged meloxicam (meloxicam 15 mg Tab) 1 Tablets By Mouth Every day [id number] [address], [place] [phone] Allergies No Known Allergies Problems Ongoing - Any problem that you are currently receiving treatment for. Acid reflux Dizziness Essential hypertension Fluid level behind tympanic membrane of both ears Gastroenteritis Hearing loss Hyperlipidemia Right otitis media Seasonal allergies Sinusitis Tinnitus Patient Survey You may receive a survey via text or e-mail asking about your office visit. Please share your experience with us by completing your survey. We appreciate your feedback and thank you for choosing us for your care. [facility] Ambulatory Visit Summary CIRAGILLIAN AGUDELO :1970 Visit Date:12/13/2023 Ambulatory Visit Instructions Your Diagnosis Acid reflux BMI 37.0-37.9, adult Non-smoker Your Care Team Attending Physician - Keila House Primary Care Physician - Keila House This Is Your Medications List atorvastatin (atorvastatin 10 mg Tab) lisinopril (lisinopril 10 mg Tab) loratadine (loratadine 10 mg Tab) meloxicam (meloxicam 15 mg Tab) omeprazole (omeprazole 40 mg Cap-DR) Procedures Performed Surgery, Surgery. Discharge Vitals Heart Rate (Peripheral) 78 Respiratory Rate 18 Blood Pressure 124/76 Height 177.0 cm Height 70 in Weight 119.9 kg Weight 263.78 lb BMI 38.27 Medications What How Much When Why Instructions New omeprazole (omeprazole 40 mg Cap-DR) 1 Capsules By Mouth Every day Acid reflux BMI 37.0-37.9, adult Non-smoker Refills: 1 Pickup at [facility]/pharmacy #[id number] Unchanged atorvastatin (atorvastatin 10 mg Tab) 1 Tablets By Mouth Every day 10 Unknown, ORAL, 0 Refill(s) Unchanged lisinopril (lisinopril 10 mg Tab) 1 Tablets By Mouth Every day Unknown, 0 Refill(s) Unchanged loratadine (loratadine 10 mg Tab) 10 Unknown, ORAL, 0 Refill(s) Unchanged meloxicam (meloxicam 15 mg Tab) 1 Tablets By Mouth Every day Pharmacy Information [facility]/pharmacy #[id number]: [address], [place] [phone] Allergies No Known Allergies Problems Ongoing - Any problem that you are currently receiving treatment for. Acid reflux Dizziness Essential hypertension Fluid level behind tympanic membrane of both ears Gastroenteritis Hearing loss Hyperlipidemia Right otitis media Seasonal allergies Sinusitis Tinnitus Patient Survey You may receive a survey via text or e-mail asking about your office visit. Please share your experience with us by completing your survey. We appreciate your feedback and thank you for choosing us for your care. Pdamini [facility] Family Medicine Office/Clini c Noteon 12-13-2023 Family Medicine Office/Clinic Note HPI Staff Gillian is a 53 year old male presenting for acute visit Abdominal Pain: Onset: 1 day Location: abdominal, epigastric pain Quality/Character: cramping Severity: 3/10 woke up this morning had epigastric pain with some shortness of breath, then started having abdominal cramping middle stomach/epigastric . does have nausea Denies vomiting or diarrhea. Did have bowel movement this morning and felt some relief after. pt hasn't tried any antacid only increased water intake History of Present Illness pt presents today with epigastric pain Review of Systems PHQ Score Initial Depression Screen Score: 0 SCORE Physical Exam Vitals & Measurements HR: 78(Peripheral) RR: 18 BP: 124/76 SpO2: 97% HT: 70 in HT: 177.0 cm WT: 119.9 kg WT: 263.78 lb BMI: 38.27 General: alert, no acute distress ENMT: oral mucosa moist, no pharyngeal erythema or exudate Cardiovascular: regular rate and rhythm, normal peripheral perfusion Respiratory: Lungs CTA, respirations non labored Extremities: no deformity, no trauma Neurological: oriented x 4, LOC appropriate for age, CN II-XII intact, motor strength equal & normal bilaterally, speech normal Assessment/Plan 1. Acid reflux (K21.9: Gastro-esophageal reflux disease without esophagitis) pt having episodes of epigastric pain. worse after he eats and when he lays down at night. will order prilsosec. RTC 4 weeks if no improvement Ordered: omeprazole, 40 mg = 1 cap(s), Oral, Daily, # 90 cap(s), Refills(s) 1, [id number] 177, cm, 12/13/23 15:39:00 EDT, Height/Length Dosing, 119.9, kg, 12/13/23 15:39:00 EDT, Weight Dosing 2. BMI 37.0-37.9, adult (Z68.37: Body mass index [BMI] 37.0-37.9, adult) BMI education complete Ordered: omeprazole, 40 mg = 1 cap(s), Oral, Daily, # 90 cap(s), Refills(s) 1, [id number] 177, cm, 12/13/23 15:39:00 EDT, Height/Length Dosing, 119.9, kg, 12/13/23 15:39:00 EDT, Weight Dosing 3. Non-smoker (Z78.9: Other specified health status) continue not smoking Ordered: omeprazole, 40 mg = 1 cap(s), Oral, Daily, # 90 cap(s), Refills(s) 1, [id number] 177, cm, 12/13/23 15:39:00 EDT, Height/Length Dosing, 119.9, kg, 12/13/23 15:39:00 EDT, Weight Dosing Follow-up No qualifying data available Problem List/Past Medical History Ongoing Acid reflux Dizziness Essential hypertension Fluid level behind tympanic membrane of both ears Gastroenteritis Hearing loss Hyperlipidemia Right otitis media Seasonal allergies Sinusitis Tinnitus Historical No qualifying data Procedure/Surgical History Surgery, Surgery. Medications atorvastatin 10 mg Tab, 10 mg= 1 tab(s), Oral, Daily lisinopril 10 mg Tab, 10 mg= 1 tab(s), Oral, Daily loratadine 10 mg Tab meloxicam 15 mg Tab, 15 mg= 1 tab(s), Oral, Daily omeprazole 40 mg Cap-DR, 40 mg= 1 cap(s), Oral, Daily, 1 refills Allergies No Known Allergies Social History Tobacco Former smoker, quit more than 30 days ago Tobacco Use:. Cigarettes, Household tobacco concerns: No., 12/13/2023 Family History Cancer: Father. Diabetes mellitus type 2: Mother. Immunizations Vaccine Date Status influenza virus vaccine, inactivated 06/26/2023 Recorded zoster vaccine, inactivated 11/14/2022 Recorded SARS-CoV-2 (COVID-19) [id number] 10/04/2022 Recorded influenza virus vaccine, inactivated 06/14/2022 Recorded SARSCoV2 mRNA(rmjadqpvy-xwxv-otw ros) vac 03/04/2022 Recorded zoster vaccine, inactivated 09/04/2021 Recorded SARS-CoV-2 (COVID-19) mRNA BNT-162b2 vax 08/22/2021 Recorded influenza virus vaccine, inactivated 06/30/2021 Recorded influenza virus vaccine, inactivated 07/17/2019 Recorded influenza virus vaccine, inactivated 05/28/2017 Recorded influenza virus vaccine, inactivated 06/23/2016 Recorded [facility] Comment on above: Result Comment: Elec tronically Signed By: Keila House\.br\Date and Time Signed: 12/13/23 15:49 EDT Provider Letteron 12-13-2023 Provider Letter (Inserted Image. Shanell ble to display) December 13, 2023 GILLIAN ARROYO [address] [place] [id number] : 1970 To Whom It May Concern, Please excuse above patient from work due to appt with DIPIKA Armenta Date of Illness: From: _ To: _ May Return to Work On:12-14-23 Restrictions: _ Comments: _ Sincerely, [place] [address] [facility] Ambulatory Visit Summaryon 0 12-09-2023 Ambulatory Visit Summary GILLIAN ARROYO :1970 Visit Date:12/09/2023 Ambulatory Visit Instructions Your Diagnosis BMI 37.0-37.9, adult Non-smoker Your Care Team Attending Physician - Keila House Primary Care Physician - Keila House This Is Your Medications List atorvastatin (atorvastatin 10 mg Tab) lisinopril (lisinopril 10 mg Tab) loratadine (loratadine 10 mg Tab) meloxicam (meloxicam 15 mg Tab) Procedures Performed Surgery, Surgery. Discharge Vitals Temperature (Tympanic) 36.8 ?C Heart Rate (Peripheral) 78 Respiratory Rate 18 Blood Pressure 118/74 Height 177 cm Height 70 in Weight 119.0 kg Weight 261.8 lb BMI 37.98 Medications What How Much When Instructions Unchanged atorvastatin (atorvastatin 10 mg Tab) 1 Tablets By Mouth Every day 10 Unknown, ORAL, 0 Refill(s) Unchanged lisinopril (lisinopril 10 mg Tab) 1 Tablets By Mouth Every day Unknown, 0 Refill(s) Unchanged loratadine (loratadine 10 mg Tab) 10 Unknown, ORAL, 0 Refill(s) Unchanged meloxicam (meloxicam 15 mg Tab) 1 Tablets By Mouth Every day Allergies No Known Allergies Problems Ongoing - Any problem that you are currently receiving treatment for. Dizziness Essential hypertension Fluid level behind tympanic membrane of both ears Hearing loss Hyperlipidemia Right otitis media Seasonal allergies Sinusitis Tinnitus Patient Survey You may receive a survey via text or e-mail asking about your office visit. Please share your experience with us by completing your survey. We appreciate your feedback and thank you for choosing us for your care. [facility] Family Medicine Office/Clini c Noteon 12-09-2023 Family Medicine Office/Clinic Note HPI Staff Gillian is a 53 year old male presenting for acute visit Questions/Concerns: [facility] and now yesterday has some diarrhea and didn't go to work patient does need note for yesterday. Pt states stool is back to normal today. denies any nausea or fevers. History of Present Illness pt presents today for GI sympotms Review of Systems PHQ Score Initial Depression Screen Score: 0 SCORE Physical Exam Vitals & Measurements T: 36.8 ?C(Tympanic) HR: 78(Peripheral) RR: 18 BP: 118/74 SpO2: 95% HT: 70 in HT: 177 cm WT: 119.0 kg WT: 261.8 lb BMI: 37.98 General: alert, no acute distress ENMT: oral mucosa moist, no pharyngeal erythema or exudate Cardiovascular: regular rate and rhythm, normal peripheral perfusion Respiratory: Lungs CTA, respirations non labored Extremities: no deformity, no trauma Neurological: oriented x 4, LOC appropriate for age, CN II-XII intact, motor strength equal & normal bilaterally, speech normal Assessment/Plan 1. Gastroenteritis (K52.9: Noninfective gastroenteritis and colitis, unspecified) pt presents today with c/o diarrhea yesterday. if feeling better today. but can not go back to work until cleared by provider. will provide note for work. RTC as needed 2. BMI 37.0-37.9, adult (Z68.37: Body mass index [BMI] 37.0-37.9, adult) BMI education complete 3. Non-smoker (Z78.9: Other specified health status) continue not smoking Follow-up No qualifying data available Problem List/Past Medical History Ongoing Dizziness Essential hypertension Fluid level behind tympanic membrane of both ears Gastroenteritis Hearing loss Hyperlipidemia Right otitis media Seasonal allergies Sinusitis Tinnitus Historical No qualifying data Procedure/Surgical History Surgery, Surgery. Medications atorvastatin 10 mg Tab, 10 mg= 1 tab(s), Oral, Daily lisinopril 10 mg Tab, 10 mg= 1 tab(s), Oral, Daily loratadine 10 mg Tab meloxicam 15 mg Tab, 15 mg= 1 tab(s), Oral, Daily Allergies No Known Allergies Social History Tobacco Former smoker, quit more than 30 days ago Tobacco Use:. Cigarettes, Household tobacco concerns: No., 12/09/2023 Family History Cancer: Father. Diabetes mellitus type 2: Mother. Immunizations Vaccine Date Status influenza virus vaccine, inactivated 06/26/2023 Recorded zoster vaccine, inactivated 11/14/2022 Recorded SARS-CoV-2 (COVID-19) [id number].[id number] 10/04/2022 Recorded influenza virus vaccine, inactivated 06/14/2022 Recorded SARSCoV2 mRNA(uteydkqbu-dduv-atq ros) vac 03/04/2022 Recorded zoster vaccine, inactivated 09/04/2021 Recorded SARS-CoV-2 (COVID-19) mRNA BNT-162b2 vax 08/22/2021 Recorded influenza virus vaccine, inactivated 06/30/2021 Recorded influenza virus vaccine, inactivated 07/17/2019 Recorded influenza virus vaccine, inactivated 05/28/2017 Recorded influenza virus vaccine, inactivated 06/23/2016 Recorded [facility] Comment on above: Result Comment: Elec tronically Signed By: Mariah NEWELL, Keila Beltran\.br\Date and Time Signed: 12/09/23 13:35 EDT Provider Letteron 12-09-2023 Provider Letter (Inserted Image. Shanell ble to display) December 09, 2023 GILLIAN ARROYO [address] [id number] : 1970 To Whom It May Concern, Please excuse above patient from work due to medical Date of Illness: From: _ 12-08-23 To: _ 12-09-23 May Return to Work On:12-10-23 Restrictions: _ Comments: _ Sincerely, Family Medicine [place] [id number] [facility] Ambulatory Visit Summaryon 0 10-14-2023 Ambulatory Visit Summary GILLIAN ARROYO :1970 Visit Date:10/14/2023 Ambulatory Visit Instructions Your Diagnosis Sinusitis Dizziness Fluid level behind tympanic membrane of both ears Right otitis media BMI 37.0-37.9, adult Former smoker Your Care Team Attending Physician - Keila House Primary Care Physician - Keila House This Is Your Medications List atorvastatin (atorvastatin 10 mg Tab) lisinopril (lisinopril 10 mg Tab) loratadine (loratadine 10 mg Tab) meloxicam (meloxicam 15 mg Tab) Procedures Performed Surgery, Surgery. Discharge Vitals Temperature (Tympanic) 36.6 ?C Heart Rate (Peripheral) 80 Respiratory Rate 18 Blood Pressure 110/74 Height 177 cm Height 70 in Weight 117.5 kg Weight 258.5 lb BMI 37.51 Medications What How Much When Instructions Unchanged atorvastatin (atorvastatin 10 mg Tab) 1 Tablets By Mouth Every day 10 Unknown, ORAL, 0 Refill(s) Unchanged lisinopril (lisinopril 10 mg Tab) 1 Tablets By Mouth Every day Unknown, 0 Refill(s) Unchanged loratadine (loratadine 10 mg Tab) 10 Unknown, ORAL, 0 Refill(s) Unchanged meloxicam (meloxicam 15 mg Tab) 1 Tablets By Mouth Every day Allergies No Known Allergies Problems Ongoing - Any problem that you are currently receiving treatment for. Dizziness Essential hypertension Fluid level behind tympanic membrane of both ears Hearing loss Hyperlipidemia Right otitis media Seasonal allergies Sinusitis Tinnitus Patient Survey You may receive a survey via text or e-mail asking about your office visit. Please share your experience with us by completing your survey. We appreciate your feedback and thank you for choosing us for your care. Padmini Downey [facility] Medicine Office/Clini c Noteon 10-14-2023 [facility] Medicine Office/Clinic Note HPI Staff Gillian is a 53 year old male presenting for acute visit Respiratory C/O: Onset: 3 days ago Body aches: yes Chest congestion: yes Chills: no sore throat: yes Cough: yes Sputum production: no Sore throat: yes Ear complaints: no Eye itching/watering: yes Fever: no Headache: yes Nasal congestion: yes Nasal discharge: no Poor appetite: no Reduced activity: no Sinus pain/pressure: yes Sneezing: no Wheezing: no Ill contacts: no Remedies tried: Tylenol Questions/Concerns: having some unsteady dizziness . hasn't' been checked for covid or flu History of Present Illness pt presents today for URI symtpoms Review of Systems PHQ Score Initial Depression Screen Score: 0 SCORE ROS - Provider Constitutional: no fever, no chills, no sweats, no fatigue Respiratory: no shortness of breath, no cough, no orthopnea, no wheezing. Cardiovascular: no chest pain, no palpitations, no edema. Neurologic: no headache, no dizziness, no numbness, no weakness. Physical Exam Vitals & Measurements T: 36.6 ?C(Tympanic) HR: 80(Peripheral) RR: 18 BP: 110/74 SpO2: 96% HT: 70 in HT: 177 cm WT: 117.5 kg WT: 258.5 lb BMI: 37.51 General: alert, no acute distress ENMT: oral mucosa moist, no pharyngeal erythema or exudate KAITLIN TM full of fluid, right TM red Cardiovascular: regular rate and rhythm, normal peripheral perfusion Respiratory: Lungs CTA, respirations non labored Extremities: no deformity, no trauma Neurological: oriented x 4, LOC appropriate for age, CN II-XII intact, motor strength equal & normal bilaterally, speech normal Assessment/Plan 1. Sinusitis (J32.9: Chronic sinusitis, unspecified) Sinus tenderness, headache, nasal congestion Ordered: amoxicillin-clavulanate , = 1 tab(s), Oral, q12hr, X 7 day(s), # 14 tab(s), Refills(s) 0, [id number] 177, cm, 10/14/23 13:59:00 EST, Height/Length Dosing, 117.5, kg, 10/14/23 13:59:00 EST, Weight Dosing methylPREDNISolone, = 1 packet(s), Oral, As Directed, as directed on package labeling, X 6 day(s), # 21 tab(s), Refills(s) 0, [id number], 177, cm, 10/14/23 13:59:00 EST, Height/Length Dosing, 117.5, kg, 10/14/23 13:59:00 EST, Weight Dosing 2. Dizziness (R42: Dizziness and giddiness) pt encouraged to change positions slowly. medrol dose pack sent Ordered: amoxicillin-clavulanate , = 1 tab(s), Oral, q12hr, X 7 day(s), # 14 tab(s), Refills(s) 0, [id number], 177, cm, 10/14/23 13:59:00 EST, Height/Length Dosing, 117.5, kg, 10/14/23 13:59:00 EST, Weight Dosing methylPREDNISolone, = 1 packet(s), Oral, As Directed, as directed on package labeling, X 6 day(s), # 21 tab(s), Refills(s) 0, [id number], 177, cm, 10/14/23 13:59:00 EST, Height/Length Dosing, 117.5, kg, 10/14/23 13:59:00 EST, Weight Dosing 3. Fluid level behind tympanic membrane of both ears (H65.93: Unspecified nonsuppurative otitis media, bilateral) KAITLIN TM full of clear fluid Ordered: amoxicillin-clavulanate , = 1 tab(s), Oral, q12hr, X 7 day(s), # 14 tab(s), Refills(s) 0, Pharmacy: [facility]/pharmacy #[id number], 177, cm, 10/14/23 13:59:00 EST, Height/Length Dosing, 117.5, kg, 10/14/23 13:59:00 EST, Weight Dosing methylPREDNISolone, = 1 packet(s), Oral, As Directed, as directed on package labeling, X 6 day(s), # 21 tab(s), Refills(s) 0, [id number], 177, cm, 10/14/23 13:59:00 EST, Height/Length Dosing, 117.5, kg, 10/14/23 13:59:00 EST, Weight Dosing 4. Right otitis media (H66.91: Otitis media, unspecified, right ear) right TM red and full of fluid Ordered: amoxicillin-clavulanate , = 1 tab(s), Oral, q12hr, X 7 day(s), # 14 tab(s), Refills(s) 0, [id number], 177, cm, 10/14/23 13:59:00 EST, Height/Length Dosing, 117.5, kg, 10/14/23 13:59:00 EST, Weight Dosing methylPREDNISolone, = 1 packet(s), Oral, As Directed, as directed on package labeling, X 6 day(s), # 21 tab(s), Refills(s) 0, [id number], 177, cm, 10/14/23 13:59:00 EST, Height/Length Dosing, 117.5, kg, 10/14/23 13:59:00 EST, Weight Dosing 5. BMI 37.0-37.9, adult (Z68.37: Body mass index [BMI] 37.0-37.9, adult) BMI education complete Ordered: amoxicillin-clavulanate , = 1 tab(s), Oral, q12hr, X 7 day(s), # 14 tab(s), Refills(s) 0, [id number], 177, cm, 10/14/23 13:59:00 EST, Height/Length Dosing, 117.5, kg, 10/14/23 13:59:00 EST, Weight Dosing methylPREDNISolone, = 1 packet(s), Oral, As Directed, as directed on package labeling, X 6 day(s), # 21 tab(s), Refills(s) 0, [id number], 177, cm, 10/14/23 13:59:00 EST, Height/Length Dosing, 117.5, kg, 10/14/23 13:59:00 EST, Weight Dosing 6. Former smoker (Z87.891: Personal history of nicotine dependence) continue not smoking Ordered: amoxicillin-clavulanate , = 1 tab(s), Oral, q12hr, X 7 day(s), # 14 tab(s), Refills(s) 0, Pharmacy: [facility]/pharmacy #[id number], 177, cm, 10/14/23 13:59:00 EST, Height/Length Dosing, 117.5, kg, 10/14/23 13:59:00 EST, Weight Dosing (more content not included)... [facility] Comment on above: Result Comment: Elec tronically Signed By: Keila House\.br\Date and Time Signed: 10/14/23 14:10 EST Provider Letteron 10-14-2023 Provider Letter (Inserted Image. Shanell ble to display) October 14, 2023 GILLIAN ARROYO [address] [place] [id number] : 1970 To Whom It May Concern, Please excuse above patient from work, due to illness. Date of Illness: From: _10-12-23 To: _10-14-23 May Return to Work On: 10-15-23 Restrictions: _ Comments: _ Sincerely, [place] [address] [facility] Ambulatory Visit Summaryon 1 10-20-2022 Ambulatory Visit Summary GILLIAN ARROYO :1970 Visit Date:08/19/2023 Ambulatory Visit Instructions Your Diagnosis Sinusitis Seasonal allergies BMI 38.0-38.9,adult Former smoker Your Care Team Attending Physician - Keila House Primary Care Physician - Keila House This Is Your Medications List amoxicillin-clavulanate (Augmentin 875 mg oral tablet) atorvastatin (atorvastatin 10 mg Tab) lisinopril (lisinopril 10 mg Tab) loratadine (loratadine 10 mg Tab) meloxicam (meloxicam 15 mg Tab) Procedures Performed Surgery, Surgery. Discharge Vitals Temperature (Tympanic) 36.5 ?C Heart Rate (Peripheral) 80 Respiratory Rate 18 Blood Pressure 142/90 Height 177 cm Height 70 in Weight 119.3 kg Weight 262.46 lb BMI 38.08 Medications What How Much When Why Instructions New amoxicillin-clavulanate (Augmentin 875 mg oral tablet) 1 Tablets By Mouth Every 12 hours Sinusitis BMI 38.0-38.9,adult Former smoker Duration: 7 Days Pickup at [facility]acy #[id number] Unchanged atorvastatin (atorvastatin 10 mg Tab) 1 Tablets By Mouth Every day 10 Unknown, ORAL, 0 Refill(s) Unchanged lisinopril (lisinopril 10 mg Tab) 1 Tablets By Mouth Every day Unknown, 0 Refill(s) Unchanged loratadine (loratadine 10 mg Tab) 10 Unknown, ORAL, 0 Refill(s) Unchanged meloxicam (meloxicam 15 mg Tab) 1 Tablets By Mouth Every day Pharmacy Information [facility]/pharmacy #[id number]: [address], [place] [phone] Allergies No Known Allergies Problems Ongoing - Any problem that you are currently receiving treatment for. Essential hypertension Hearing loss Hyperlipidemia Seasonal allergies Sinusitis Tinnitus Patient Survey You may receive a survey via text or e-mail asking about your office visit. Please share your experience with us by completing your survey. We appreciate your feedback and thank you for choosing us for your care. [facility] 08-19-2023 Consent [phone] [id number] [id number] [facility] Family Medicine Office/Clini c Noteon 08-19-2023 Family Medicine Office/Clinic Note HPI Staff Gillian is a 53 year old male presenting to [facility] care Establish Care: History: Any previous diagnosis: Chronic pain, HTN, HLD, Allergies History of seeing any specialist: Audioligst- Tinnitites/hearing loss left ear worse When was your last doctors visit: Last provider: TARUN Golden Any recent labs: [facility] Health Maintenance UTD: Colonoscopy: 3 years ago normal, at [facility] PSA: yes unknwon what level was Respiratory C/O: Onset: 4 days Body aches: no Chest congestion: no Chills: no Cough: no Sputum production: no Sore throat: yes Ear complaints: no Eye itching/watering: no Fever: no Headache: yes Nasal congestion: yes Nasal discharge: no Poor appetite: no Reduced activity: no Sinus pain/pressure: yes Sneezing: no Wheezing: no Ill contacts: yes Daughter Remedies tried: phenylephrine History of Present Illness pt presents today with c/o nasal congestion, sinus pressure, Review of Systems PHQ Score Initial Depression Screen Score: 0 SCORE ROS - Provider Constitutional: no fever, no chills, no sweats, no fatigue Respiratory: no shortness of breath, no cough, no orthopnea, no wheezing., nasal congestion, sinus pressure Cardiovascular: no chest pain, no palpitations, no edema. Neurologic: no headache, no dizziness, no numbness, no weakness. Physical Exam Vitals & Measurements T: 36.5 ?C(Tympanic) HR: 80(Peripheral) RR: 18 BP: 142/90 SpO2: 98% HT: 70 in HT: 177 cm WT: 119.3 kg WT: 262.46 lb BMI: 38.08 General: alert, no acute distress ENMT: oral mucosa moist, no pharyngeal erythema or exudate, KAITLIN canals pink and dry, small amount clear fluid, sinus tenderness Cardiovascular: regular rate and rhythm, normal peripheral perfusion Respiratory: Lungs CTA, respirations non labored Extremities: no deformity, no trauma Neurological: oriented x 4, LOC appropriate for age, CN II-XII intact, motor strength equal & normal bilaterally, speech normal Assessment/Plan 1. Sinusitis (J32.9: Chronic sinusitis, unspecified) pt having nasal congestion and severe sinus pressure with headache. will treat with Augmentin and give kenalog in office today. pt encouraged to get kenalog twice a year. He goes to [facility] for all of his annual wellness labs. all questions answered. RTC as needed Ordered: amoxicillin-clavulanate , = 1 tab(s), Oral, q12hr, X 7 day(s), # 14 tab(s), Refills(s) 0, Pharmacy: [facility]/pharmacy #[id number], 177, cm, 08/19/23 11:11:00 EST, Height/Length Dosing, 119.3, kg, 08/19/23 11:11:00 EST, Weight Dosing 2. Seasonal allergies (J30.2: Other seasonal allergic rhinitis) both ear canals are pink and dry 3. BMI 38.0-38.9,adult (Z68.38: Body mass index [BMI] 38.0-38.9, adult) BMI education complete Ordered: amoxicillin-clavulanate , = 1 tab(s), Oral, q12hr, X 7 day(s), # 14 tab(s), Refills(s) 0, [id number] 177, cm, 08/19/23 11:11:00 EST, Height/Length Dosing, 119.3, kg, 08/19/23 11:11:00 EST, Weight Dosing 4. Former smoker (Z87.891: Personal history of nicotine dependence) continue not smoking Ordered: amoxicillin-clavulanate , = 1 tab(s), Oral, q12hr, X 7 day(s), # 14 tab(s), Refills(s) 0, [id number] 177, cm, 08/19/23 11:11:00 EST, Height/Length Dosing, 119.3, kg, 08/19/23 11:11:00 EST, Weight Dosing Follow-up No qualifying data available Problem List/Past Medical History Ongoing Essential hypertension Hearing loss Hyperlipidemia Seasonal allergies Sinusitis Tinnitus Historical No qualifying data Procedure/Surgical History Surgery, Surgery. Medications atorvastatin 10 mg Tab, 10 mg= 1 tab(s), Oral, Daily Augmentin 875 mg oral tablet, 1 tab(s), Oral, q12hr lisinopril 10 mg Tab, 10 mg= 1 tab(s), Oral, Daily loratadine 10 mg Tab meloxicam 15 mg Tab, 15 mg= 1 tab(s), Oral, Daily Allergies No Known Allergies Social History Tobacco Former smoker, quit more than 30 days ago Tobacco Use:. Cigarettes, Household tobacco concerns: No., 08/19/2023 Family History Cancer: Father. Diabetes mellitus type 2: Mother. Immunizations Vaccine Date Status influenza virus vaccine, inactivated 06/26/2023 Recorded zoster vaccine, inactivated 11/14/2022 Recorded SARS-CoV-2 (COVID-19) [id number] 10/04/2022 Recorded influenza virus vaccine, inactivated 06/14/2022 Recorded SARSCoV2 mRNA(roxncrkyr-jipc-hcf ros) vac 03/04/2022 Recorded zoster vaccine, inactivated 09/04/2021 Recorded SARS-CoV-2 (COVID-19) mRNA BNT-162b2 vax 08/22/2021 Recorded influenza virus vaccine, inactivated 06/30/2021 Recorded influenza virus vaccine, inactivated 07/17/2019 Recorded influenza virus vaccine, inactivated 05/28/2017 Recorded influenza virus vaccine, inactivated 06/23/2016 Recorded [facility] Comment on above: Result Comment: Elec tronically Signed By: Keila House\.br\Date and Time Signed: 08/19/23 11:33 EST Provider Letteron 08-19-2023 Provider Letter (Inserted Image. Shanell ble to display) August 19, 2023 GILLIAN ARROYO [address] [place] [address] : 1970 To Whom It May Concern, Please excuse above patient from work. Date of Illness: From: 08.17.2023 To: 08.19.2023 May Return to Work On: 08.19.2023 Sincerely, REECE Armenta-Zion [address] [address] [facility] COVID-19 Antigenon 2 COVID-19 Antigen Healthcare Worker?: N Kristel Reference Kristel Reference Negative SARS-CoV+SARS-CoV-2 (COVID-19) Ag [Presence] in Respiratory specimen by Rapid immunoassay Negative for SARS Antigen by BRIAN COVID19 Blank Space -------- Kristel Disclaimer Negative results, from patients with symptom Kristel Disclaimer onset beyond five days, should be treated as Kristel Disclaimer presumptive and confirmation with a molecular Kristel Disclaimer assay, if necessary, for patient management, Kristel Disclaimer may be performed. Negative results do not rule Kristel Disclaimer out COVID-19 and should not be used as the sole Kristel Disclaimer basis for treatment or patient management Kristel Disclaimer decisions, including infection control decisions. Kristel Disclaimer Negative results should be considered in the Kristel Disclaimer context of a patient's recent exposures, history Kristel Disclaimer and the presence of clinical signs and symptoms Kristel Disclaimer consistent with COVID-19. COVID19 Blank Space -------- Kristel Disclaimer The Kristel SARS Antigen BRIAN does not differentiate Kristel Disclaimer between SARS-CoV and SARS-CoV-2. COVID19 Blank Space -------- Kristel Disclaimer This test was developed and its performance Kristel Disclaimer characteristic determined by [employer] and Kristel Disclaimer validated at [facility]. This Kristel Disclaimer test has not been FDA cleared or approved. This Kristel Disclaimer test has been authorized by FDA under an Emergency Use Kristel Disclaimer Authorization (EUA). This test has been validated Kristel Disclaimer in accordance with the FDA's Guidance Document (Policy Kristel Disclaimer for Diagnostics Testing in Laboratories Certified to Kristel Disclaimer Perform High Complexity Testing under CLIA prior to Kristel Disclaimer Emergency Use Authorization for Coronavirus Kristel Disclaimer iseas during the Public Health Emergency) Kristel Disclaimer issued on December 14, 2019. This test is only authorized Kristel Disclaimer for the duration of time the declaration that Kristel Disclaimer circumstances exist justifying the authorization of Kristel Disclaimer the emergency use of in vitro diagnostic tests for Kristel Disclaimer detection of SARS-CoV-2 virus and/or diagnosis of Kristel Disclaimer COVID-19 infection under section 564(b)(1) of the Kristel Disclaimer Act, 21 U.S.C. 360bbb-3(b)(1), unless the Kristel Disclaimer authorization is terminated or revoked sooner. PERFORMED BY: [place] [address] PATHOLOGIST GRAPHIC DESIGN INTERN CESAR RODRÍGUEZ M.D. [facility] Comment on above: Performed By: #### S OFILYA, COVID-19 KRISTEL #### [address] Kristel Ag Negativeon 12-06-19 Kristel Ag Negative Negative Normal Negative [facility] Comment on above: Result Comment: This is a duplicate Kristel SARS Antigen (BRIAN) result to be used for statistical tracking purpose only. PERFORMED BY: [place] [address] PATHOLOGIST GRAPHIC DESIGN INTERN CESAR RODRÍGUEZ M.D. Performed By: #### S OFILYA, COVID-19 KRISTEL #### [address] Vital Signs Date Time Vital Sign Value Performing Clinician Facility 04-14-2024 13:34-0400 Blood Pressure Location [facility] 04-14-2024 13:34-0400 Body temperature 98.78 [degF] [facility] 04-14-2024 13:34-0400 Diastolic blood pressure 82 mm[Hg] [facility] 04-14-2024 13:34-0400 Heart rate 102 /[facility] 04-14-2024 13:34-0400 Respiratory rate 20 /min [facility] 04-14-2024 13:34-0400 SaO2% (BldA) [Mass fraction] 96 % [facility] 04-14-2024 13:34-0400 Systolic blood pressure 132 mm[Hg] MACARIO STRANGE [facility] 03-15-2024 13:15-0400 Blood Pressure Location Lisa Sethi [facility] 03-15-2024 13:15-0400 Diastolic blood pressure 76 mm[Hg] Lisa Smithdner [facility] 03-15-2024 13:15-0400 Heart rate 97 /min Lisa Smithdner [facility] 03-15-2024 13:15-0400 Systolic blood pressure 120 mm[Hg] Lisa Smithdner [facility] Encounters Encounter Date Encounter Type Care Provider Facility Start: 06-22-2024 End: 06-22-2024 ambulatory Keila L Mariah Facility:[facility] [place] Start: 05-17-2024 End: 05-17-2024 ambulatory Keila L Mariah Facility:[facility] [place] Start: 05-05-2024 End: 05-05-2024 ambulatory ALEHSA A ROBEL Facility:[facility] [place] Start: 05-02-2024 End: 05-02-2024 ambulatory MIRIAM H TIMMIS Not Available Start: 04-26-2024 End: 04-26-2024 ambulatory MIRIAM H TIMMIS Not Available Start: 04-21-2024 End: 04-21-2024 ambulatory ALESHA A ROBEL Facility:[facility] [place] Start: 04-14-2024 End: 04-14-2024 ambulatory PA-C MACARIO STRANGE Facility: [facility] Start: 04-14-2024 End: 04-14-2024 Patient encounter procedure MACARIO STRANGE [facility] Start: 04-07-2024 End: 04-07-2024 ambulatory ALESHA A ROBEL Facility: [facility] Start: 03-28-2024 End: 03-28-2024 ambulatory ALESHA A ROBEL Facility:[facility] [place] Start: 03-15-2024 End: 03-15-2024 ambulatory Lisa Sethi Facility: [facility] Start: 03-15-2024 End: 03-15-2024 Patient encounter procedure Lisa Sethi [facility] Start: 02-28-2024 End: 02-28-2024 ambulatory Keila L Mariah Facility:[facility] [place] Start: 02-09-2024 End: 02-09-2024 ambulatory GERARDO CARMELINA Not Available Start: 01-31-2024 End: 01-31-2024 ambulatory Keila L Mariah Facility:[facility] [place] Start: 01-10-2024 End: 01-10-2024 ambulatory Keila L Mariah Facility:[facility] [place] Start: 12-13-2023 End: 12-13-2023 ambulatory Keila L Mariah Facility:[facility] [place] Start: 12-09-2023 End: 12-09-2023 ambulatory Keila L Mariah Facility:[facility] [place] Start: 10-14-2023 End: 10-14-2023 ambulatory Keila L Mariah Facility:[facility] [place] Start: 08-19-2023 End: 08-19-2023 ambulatory Keila L Mariah Facility:[facility] [place] Start: 08-18-2023 ambulatory Lisa Sethi Facili ty:[facility] [place] Procedures Date Procedure Procedure Detail Performing Clinician Surgical procedure Lisa Sethi Plan of Treatment Date Care Activity Detail Author Start: 11-14-2024 ambulatory Ambulatory Facility:[facility] [place] Immunizations Immunization Date Immunization Notes Care Provider Fa anthony 11-03-2023 tetanus toxoid, redu gwen diphtheria toxoid, and acellular pertussis vaccine, adsorbed Lisa Sethi [facility] 06-26-2023 influenza virus vaccine, unspecified formulation Lisa Bordner [facility] 11-14-2022 zoster vaccine recombinant Lisa Bordner [facility] 10-04-2022 SARS-CoV-2 (COVID-19 ) [id number] Lisa Bordner [facility] 06-14-2022 influenza virus vaccine, unspecified formulation Lisa Bordner [facility] 03-04-2022 SARS-CoV-2 mRNA (aanufwofjdw-urgq-mpilr se) vaccine Lisa Bordner [facility] 09-04-2021 zoster vaccine recombinant Lisa Bordner [facility] 08-22-2021 SARS-CoV-2 (COVID-19 ) mRNA BNT-162b2 vax Lisa Bordner [facility] 06-30-2021 influenza virus vaccine, unspecified formulation Lisa Bordner [facility] 07-17-2019 influenza virus vaccine, unspecified formulation Lisa Bordner [facility] 05-28-2017 influenza virus vaccine, unspecified formulation Lisa Bordner [facility] 06-23-2016 influenza virus vaccine, unspecified formulation Lisa Bordner [facility] Payers Date Payer Category Payer Unknown [id number] 2023 Private Health Insurance [id number] 2012 Self-pay 1970 Unknown [id number] 2.16.84 [id number] 1970 Unknown [id number] 2.16.84 [id number] 1970 Unknown [id number] 2.16.8 40.1.197982.3.579.2.727 1970 Unknown [id number] 2.16.8 40.1.193588.3.579.2.727 1970 Unknown [id number] 2.16.8 40.1.125301.3.579.2.72 1970 Unknown [id number] 2.16.8 40.1.536668.3.579.2.727 1970 Unknown [id number] 2.16.8 40.1.203397.3.579.2.727 1970 Unknown [id number] 2.16.8 40.1.263108.3.579.2.727 1970 Unknown [id number] 2.16.8 40.1.685208.3.579.2.727 1970 Unknown [id number] 2.16.8 40.1.363137.3.579.2.727 1970 Unknown [id number] 2.16.8 40.1.135952.3.579.2.727 1970 Unknown [id number] 2.16.8 40.1.562654.3.579.2.727 1970 Unknown [id number] 2.16.8 40.1.049639.3.579.2.72 1970 Unknown [id number] 2.16.8 40.1.528453.3.579.2.727 1970 Unknown [id number] 2.16.8 40.1.190961.3.579.2.727 1970 Unknown [id number] 2.16.8 40.1.654141.3.579.2.727 1970 Unknown [id number] 2.16.8 40.1.204739.3.579.2.727 1970 Unknown [id number] 2.16.8 40.1.285709.3.579.2.727 1970 Unknown [id number] 2.16.8 40.1.561558.3.579.2.727 1970 Unknown [id number] 2.16.8 40.1.585942.3.579.2.727 Social History Date Type Detail Facility Start: 03-15-2024 End: 04-14-2024 Tobacco smoking status Ex-smoker (finding) [facility] Comment on above: Quit 2013 Tobacco smoking status Never [facility] Comment on above: Quit 2013 Sex Assigned At Male [facility] Functional Status Date Assessment Result Facility 04-14-2024 Functional Status N/A [facility] 03-15-2024 Functional Status N/A [facility] Clinical Note 05-05-2024 Note Date & Type Note Facility 05-05-2024 Note Patient Education Orthopedics Managing Chronic Back Pain Chronic back pain is back pain that lasts for 12 weeks or longer. It often affects the lower back. Back pain may feel like a muscle ache or a sharp, stabbing pain. It can be mild, moderate, or severe. If you have been diagnosed with chronic back pain, there are things you can do to manage your symptoms. You may have to try different things to see what works best for you. Your health care provider may also give you specific instructions. How to manage lifestyle changes Treating chronic back pain often starts with rest and pain relief, followed by exercises to restore movement and strength to your back (physical therapy). You may need surgery if other treatments do not help, or if your pain is caused by a condition or an injury. Follow your treatment plan as told by your health care provider. This may include: ? Relaxation techniques. ? Talk therapy or counseling with a mental health specialist. A form of talk therapy called cognitive behavioral therapy (CBT) can be especially helpful. This therapy helps you set goals and follow up on the changes that you make. ? Acupuncture or massage therapy. ? Local electrical stimulation. ? Injections. These deliver numbing or pain-relieving medicines into your spine or the area of pain. How to recognize changes in your chronic back pain Your condition may improve with treatment. However, back pain may not go away or may get worse over time. Watch your symptoms carefully and let your health care provider know if your symptoms get worse or do not improve. Your back pain may be getting worse if you have: ? Pain that begins to cause problems with posture. ? Pain that gets worse when you are sitting, standing, walking, bending, or lifting. ? Pain that affects you while you are active, or at rest, or both. ? Pain that eventually makes it hard to move around (limits mobility). ? Pain that occurs with fever, weight loss, or difficulty urinating. ? Pain that causes numbness and tingling. How to use body mechanics and posture to help with pain Healthy body mechanics and good posture can help to relieve stress on your back. Body mechanics refers to the movements and positions of your body during your daily activities. Posture is part of body mechanics. Good posture means: ? Your spine is in its natural S-curve, or neutral, position. ? Your shoulders are pulled back slightly. ? Your head is not tipped forward. Follow these guidelines to improve your posture and body mechanics in your everyday activities. Standing ? When standing, keep your spine neutral and your feet about hip-width apart. Keep your knees slightly bent. Your ears, shoulders, and hips should line up. ? When you do a task in which you event planning manager one place for a long time, place one foot on a stable object that is 2?4 inches (5?10 cm) high, such as a footstool. This helps keep your spine neutral. Sitting ? When sitting, keep your spine neutral and your feet flat on the floor. Use a footrest, if necessary, and keep your thighs parallel to the floor. Avoid rounding your shoulders, and avoid tilting your head forward. ? When working at a desk or a computer, keep your desk at a height where your hands are slightly lower than your elbows. Slide your chair under your desk so you are close enough to maintain good posture. ? When working at a computer, place your monitor at a height where you are looking straight ahead and you do not have to tilt your head forward or downward to view the screen. Lifting ? Keep your feet at least shoulder-width apart and tighten the muscles of your abdomen. ? Bend your knees and hips and keep your spine neutral. Be sure to lift using the strength of your legs, not your back. Do not lock your knees straight out. ? Always ask for help to lift heavy or awkward objects. Resting ? When lying down and resting, avoid positions that are most painful. ? If you have pain with activities such as sitting, bending, stooping, or squatting, lie in a position in which your body does not bend very much. For example, avoid curling up on your side with your arms and knees near your chest ( position). ? If you have pain with activities such as standing for a long time or reaching with your arms, lie with your spine in a neutral position and bend your knees slightly. Try: ? Lying on your side with a pillow between your knees. ? Lying on your back with a pillow under your knees. Follow these instructions at home: Medicines ? Treatment may include lgrm-qld-hbrgoar or prescription medicines for pain and inflammation that are taken by mouth or applied to the skin. Another treatment may include muscle relaxants. Take nqwh-pxh-kvzpruq and prescription medicines only as told by your health care provider. ? Ask your health (more content not included)... [facility] Hospital Discharge instructions 04-14-2024 Note Date & Type Note Facility 04-14-2024 Hospital Discharg e instructions Patient Education 04/14/2024 14:01:59 Sinus Infection, Adult, Vkhj-om-Dqud Sinus Infection, Adult A sinus infection is soreness and swelling (inflammation) of your sinuses. Sinuses are hollow spaces in the bones around your face. They are located: Around your eyes. In the middle of your forehead. Behind your nose. In your cheekbones. Your sinuses and nasal passages are lined with a fluid called mucus. Mucus drains out of your sinuses. Swelling can trap mucus in your sinuses. This lets germs (bacteria, virus, or fungus) grow, which leads to infection. Most of the time, this condition is caused by a virus. What are the causes? Allergies. Asthma. Germs. Things that block your nose or sinuses. Growths in the nose (nasal polyps). Chemicals or irritants in the air. A fungus. This is rare. What increases the risk? Having a weak body defense system (immune system). Doing a lot of swimming or diving. Using nasal sprays too much. Smoking. What are the signs or symptoms? The main symptoms of this condition are pain and a feeling of pressure around the sinuses. Other symptoms include: Stuffy nose (congestion). This may make it hard to breathe through your nose. Runny nose (drainage). Soreness, swelling, and warmth in the sinuses. A cough that may get worse at night. Being unable to smell and taste. Mucus that collects in the throat or the back of the nose (postnasal drip). This may cause a sore throat or bad breath. Being very tired (fatigued). A fever. How is this diagnosed? Your symptoms. Your medical history. A physical exam. Tests to find out if your condition is short-term (acute) or long-term (chronic). Your doctor may: ?Check your nose for growths (polyps). ?Check your sinuses using a tool that has a light on one end (endoscope). ?Check for allergies or germs. ?Do imaging tests, such as an MRI or CT scan. How is this treated? Treatment for this condition depends on the cause and whether it is short-term or long-term. If caused by a virus, your symptoms should go away on their own within 10 days. You may be given medicines to relieve symptoms. They include: ?Medicines that shrink swollen tissue in the nose. ?A spray that treats swelling of the nostrils. ?Rinses that help get rid of thick mucus in your nose (nasal saline washes). ?Medicines that treat allergies (antihistamines). ?Yzak-ebn-zjtptrf pain relievers. If caused by bacteria, your doctor may wait to see if you will get better without treatment. You may be given antibiotic medicine if you have: ?A very bad infection. ?A weak body defense system. If caused by growths in the nose, surgery may be needed. Follow these instructions at home: Medicines Take, use, or apply wwdw-hxt-tiuejkp and prescription medicines only as told by your doctor. These may include nasal sprays. If you were prescribed an antibiotic medicine, take it as told by your doctor. Do not stop taking it even if you start to feel better. Hydrate and humidify Drink enough water to keep your pee (urine) pale yellow. Use a cool mist humidifier to keep the humidity level in your home above 50%. Breathe in steam for 10 15 minutes, 3 4 times a day, or as told by your doctor. You can do this in the bathroom while a hot shower is running. Try not to spend time in cool or dry air. Rest Rest as much as you can. Sleep with your head raised (elevated). Make sure you get enough sleep each night. General instructions Put a warm, moist washcloth on your face 3 4 times a day, or as often as told by your doctor. Use nasal saline washes as often as told by your doctor. Wash your hands often with soap and water. If you cannot use soap and water, use hand mica builder. Do not smoke. Avoid being around people who are smoking (secondhand smoke). Keep all follow-up visits. Contact a doctor if: You have a fever. Your symptoms get worse. Your symptoms do not get better within 10 days. Get help right away if: You have a very bad headache. You cannot stop vomiting. You have very bad pain or swelling around your face or eyes. You have trouble seeing. You feel confused. Your neck is stiff. You have trouble breathing. These symptoms may be an emergency. Get help right away. Call 911. Do not wait to see if the symptoms will go away. Do not drive yourself to the hospital. Summary A sinus infection is swelling of your sinuses. Sinuses are hollow spaces in the bones around your face. This condition is caused by tissues in your nose that become inflamed or swollen. This traps germs. These can lead to infection. If you were prescribed an antibiotic medicine, take it as told by your doctor. Do not stop taking it even if you start to feel better. Keep all follow-up visits. This information is not intended to replace advice given to you by your health care provider. Make sure you discuss any questions you have with your health care provider. Document Revised: 08/04/2022 Document Reviewed: 08/04/2022 [employer] Patient Education 2022 [employer]. Follow Up Care 04/14/2024 12:18:48 With:Keila [facility], [facility] Address:Unknown When: Unknown [facility] Clinical Note 04-14-2024 Note Date & Type Note Facility 04-14-2024 Note Patient Education Infectious Disease Sinus Infection, Adult A sinus infection is soreness and swelling (inflammation) of your sinuses. Sinuses are hollow spaces in the bones around your face. They are located: ? Around your eyes. ? In the middle of your forehead. ? Behind your nose. ? In your cheekbones. Your sinuses and nasal passages are lined with a fluid called mucus. Mucus drains out of your sinuses. Swelling can trap mucus in your sinuses. This lets germs (bacteria, virus, or fungus) grow, which leads to infection. Most of the time, this condition is caused by a virus. What are the causes? ? Allergies. ? Asthma. ? Germs. ? Things that block your nose or sinuses. ? Growths in the nose (nasal polyps). ? Chemicals or irritants in the air. ? A fungus. This is rare. What increases the risk? ? Having a weak body defense system (immune system). ? Doing a lot of swimming or diving. ? Using nasal sprays too much. ? Smoking. What are the signs or symptoms? The main symptoms of this condition are pain and a feeling of pressure around the sinuses. Other symptoms include: ? Stuffy nose (congestion). This may make it hard to breathe through your nose. ? Runny nose (drainage). ? Soreness, swelling, and warmth in the sinuses. ? A cough that may get worse at night. ? Being unable to smell and taste. ? Mucus that collects in the throat or the back of the nose (postnasal drip). This may cause a sore throat or bad breath. ? Being very tired (fatigued). ? A fever. How is this diagnosed? ? Your symptoms. ? Your medical history. ? A physical exam. ? Tests to find out if your condition is short-term (acute) or long-term (chronic). Your doctor may: ? Check your nose for growths (polyps). ? Check your sinuses using a tool that has a light on one end (endoscope). ? Check for allergies or germs. ? Do imaging tests, such as an MRI or CT scan. How is this treated? Treatment for this condition depends on the cause and whether it is short-term or long-term. ? If caused by a virus, your symptoms should go away on their own within 10 days. You may be given medicines to relieve symptoms. They include: ? Medicines that shrink swollen tissue in the nose. ? A spray that treats swelling of the nostrils. ? Rinses that help get rid of thick mucus in your nose (nasal saline washes). ? Medicines that treat allergies (antihistamines). ? Rkel-ora-cswamxd pain relievers. ? If caused by bacteria, your doctor may wait to see if you will get better without treatment. You may be given antibiotic medicine if you have: ? A very bad infection. ? A weak body defense system. ? If caused by growths in the nose, surgery may be needed. Follow these instructions at home: Medicines ? Take, use, or apply cago-quw-dhjowyw and prescription medicines only as told by your doctor. These may include nasal sprays. ? If you were prescribed an antibiotic medicine, take it as told by your doctor. Do not stop taking it even if you start to feel better. Hydrate and humidify ? Drink enough water to keep your pee (urine) pale yellow. ? Use a cool mist humidifier to keep the humidity level in your home above 50%. ? Breathe in steam for 10?15 minutes, 3?4 times a day, or as told by your doctor. You can do this in the bathroom while a hot shower is running. ? Try not to spend time in cool or dry air. Rest ? Rest as much as you can. ? Sleep with your head raised (elevated). ? Make sure you get enough sleep each night. General instructions ? Put a warm, moist washcloth on your face 3?4 times a day, or as often as told by your doctor. ? Use nasal saline washes as often as told by your doctor. ? Wash your hands often with soap and water. If you cannot use soap and water, use hand mica builder. ? Do not smoke. Avoid being around people who are smoking (secondhand smoke). ? Keep all follow-up visits. Contact a doctor if: ? You have a fever. ? Your symptoms get worse. ? Your symptoms do not get better within 10 days. Get help right away if: ? You have a very bad headache. ? You cannot stop vomiting. ? You have very bad pain or swelling around your face or eyes. ? You have trouble seeing. ? You feel confused. ? Your neck is stiff. ? You have trouble breathing. These symptoms may be an emergency. Get help right away. Call 911. ? Do not wait to see if the symptoms will go away. ? Do not drive yourself to the hospital. Summary ? A sinus infection is swelling of your sinuses. Sinuses are hollow spaces in the bones around your face. ? This condition is caused by tissues in your nose that become inflamed or swollen. This traps germs. These can lead to infection. ? If you were prescribed an antibiotic medicine, take it as told by your doctor. Do not stop taking it even if you start to feel better. ? Keep (more content not included)... [facility] Clinical Note 04-07-2024 Note Date & Type Note Facility 04-07-2024 Note Patient Education Gastroenterology Food Choices to Help Relieve Diarrhea, Adult Diarrhea can make you feel weak and cause you to become dehydrated. It is important to choose the right foods and drinks to: ? Relieve diarrhea. ? Replace lost fluids and nutrients. ? Prevent dehydration. What are tips for following this plan? Relieving diarrhea ? Avoid foods that make your diarrhea worse. These may include: ? Foods and beverages sweetened with high-fructose corn syrup, honey, or sweeteners such as xylitol, sorbitol, and mannitol. ? Fried, greasy, or spicy foods. ? Raw fruits and vegetables. ? Eat foods that are rich in probiotics. These include foods such as yogurt and fermented milk products. Probiotics can help increase healthy bacteria in your stomach and intestines (gastrointestinal tract or GI tract). This may help digestion and stop diarrhea. ? If you have lactose intolerance, avoid dairy products. These may make your diarrhea worse. ? Take medicine to help stop diarrhea only as told by your health care provider. Replacing nutrients ? Eat bland, plku-rw-kzasrg foods in small amounts as you are able, until your diarrhea starts to get better. These foods include bananas, applesauce, rice, toast, and crackers. ? Gradually reintroduce nutrient-rich foods as tolerated or as told by your health care provider. This includes: ? Well-cooked protein foods, such as eggs, lean meats like fish or chicken without skin, and tofu. ? Peeled, seeded, and soft-cooked fruits and vegetables. ? Low-fat dairy products. ? Whole grains. ? Take vitamin and mineral supplements as told by your health care provider. Preventing dehydration ? Start by sipping water or a solution to prevent dehydration (oral rehydration solution, ORS). This is a drink that helps replace fluids and minerals your body has lost. You can buy an ORS at pharmacies and retail stores. ? Try to drink at least 8?10 cups (2,000?2,500 mL) of fluid each day to help replace lost fluids. If you have urine that is pale yellow, you are getting enough fluids. ? You may drink other liquids in addition to water, such as fruit juice that you have added water to (diluted fruit juice) or low-calorie sports drinks, as tolerated or as told by your health care provider. ? Avoid drinks with caffeine, such as coffee, tea, or soft drinks. ? Avoid alcohol. Summary ? When you have diarrhea, it is important to choose the right foods and drinks to relieve diarrhea, to replace lost fluids and nutrients, and to prevent dehydration. ? Make sure you drink enough fluid to keep your urine pale yellow. ? You may benefit from eating bland foods at first. Gradually reintroduce healthy, nutrient-rich foods as tolerated or as told by your health care provider. ? Avoid foods that make your diarrhea worse, such as fried, greasy, or spicy foods. This information is not intended to replace advice given to you by your health care provider. Make sure you discuss any questions you have with your health care provider. Document Revised: 11/20/2022 Document Reviewed: 10/15/2020 Else[employer] Patient Education ? 2022 [employer] [facility] Clinical Note 03-28-2024 Note Date & Type Note Facility 03-28-2024 Note Patient Education Infectious Disease Sinus Infection, Adult A sinus infection is soreness and swelling (inflammation) of your sinuses. Sinuses are hollow spaces in the bones around your face. They are located: ? Around your eyes. ? In the middle of your forehead. ? Behind your nose. ? In your cheekbones. Your sinuses and nasal passages are lined with a fluid called mucus. Mucus drains out of your sinuses. Swelling can trap mucus in your sinuses. This lets germs (bacteria, virus, or fungus) grow, which leads to infection. Most of the time, this condition is caused by a virus. What are the causes? ? Allergies. ? Asthma. ? Germs. ? Things that block your nose or sinuses. ? Growths in the nose (nasal polyps). ? Chemicals or irritants in the air. ? A fungus. This is rare. What increases the risk? ? Having a weak body defense system (immune system). ? Doing a lot of swimming or diving. ? Using nasal sprays too much. ? Smoking. What are the signs or symptoms? The main symptoms of this condition are pain and a feeling of pressure around the sinuses. Other symptoms include: ? Stuffy nose (congestion). This may make it hard to breathe through your nose. ? Runny nose (drainage). ? Soreness, swelling, and warmth in the sinuses. ? A cough that may get worse at night. ? Being unable to smell and taste. ? Mucus that collects in the throat or the back of the nose (postnasal drip). This may cause a sore throat or bad breath. ? Being very tired (fatigued). ? A fever. How is this diagnosed? ? Your symptoms. ? Your medical history. ? A physical exam. ? Tests to find out if your condition is short-term (acute) or long-term (chronic). Your doctor may: ? Check your nose for growths (polyps). ? Check your sinuses using a tool that has a light on one end (endoscope). ? Check for allergies or germs. ? Do imaging tests, such as an MRI or CT scan. How is this treated? Treatment for this condition depends on the cause and whether it is short-term or long-term. ? If caused by a virus, your symptoms should go away on their own within 10 days. You may be given medicines to relieve symptoms. They include: ? Medicines that shrink swollen tissue in the nose. ? A spray that treats swelling of the nostrils. ? Rinses that help get rid of thick mucus in your nose (nasal saline washes). ? Medicines that treat allergies (antihistamines). ? Voav-dhc-himyzkt pain relievers. ? If caused by bacteria, your doctor may wait to see if you will get better without treatment. You may be given antibiotic medicine if you have: ? A very bad infection. ? A weak body defense system. ? If caused by growths in the nose, surgery may be needed. Follow these instructions at home: Medicines ? Take, use, or apply fgbk-kbd-ooayrdt and prescription medicines only as told by your doctor. These may include nasal sprays. ? If you were prescribed an antibiotic medicine, take it as told by your doctor. Do not stop taking it even if you start to feel better. Hydrate and humidify ? Drink enough water to keep your pee (urine) pale yellow. ? Use a cool mist humidifier to keep the humidity level in your home above 50%. ? Breathe in steam for 10?15 minutes, 3?4 times a day, or as told by your doctor. You can do this in the bathroom while a hot shower is running. ? Try not to spend time in cool or dry air. Rest ? Rest as much as you can. ? Sleep with your head raised (elevated). ? Make sure you get enough sleep each night. General instructions ? Put a warm, moist washcloth on your face 3?4 times a day, or as often as told by your doctor. ? Use nasal saline washes as often as told by your doctor. ? Wash your hands often with soap and water. If you cannot use soap and water, use hand mica builder. ? Do not smoke. Avoid being around people who are smoking (secondhand smoke). ? Keep all follow-up visits. Contact a doctor if: ? You have a fever. ? Your symptoms get worse. ? Your symptoms do not get better within 10 days. Get help right away if: ? You have a very bad headache. ? You cannot stop vomiting. ? You have very bad pain or swelling around your face or eyes. ? You have trouble seeing. ? You feel confused. ? Your neck is stiff. ? You have trouble breathing. These symptoms may be an emergency. Get help right away. Call 911. ? Do not wait to see if the symptoms will go away. ? Do not drive yourself to the hospital. Summary ? A sinus infection is swelling of your sinuses. Sinuses are hollow spaces in the bones around your face. ? This condition is caused by tissues in your nose that become inflamed or swollen. This traps germs. These can lead to infection. ? If you were prescribed an antibiotic medicine, take it as told by your doctor. Do not stop taking it even if you start to feel better. ? Keep (more content not included)... [facility] Hospital Discharge instructions 03-15-2024 Note Date & Type Note Facility 03-15-2024 Hospital Discharg e instructions Patient Education 03/15/2024 19:31:40 MyPlate from USDA MyPlate from USDA MyPlate is an outline of a general healthy diet based on the Dietary Guidelines for Americans, 2020 2024, from the U.S. Department of Agriculture (USDA). It sets guidelines for how much food you should eat from each food group based on your age, sex, and level of physical activity. What are tips for following MyPlate? To follow MyPlate recommendations: Eat a wide variety of fruits and vegetables, grains, and protein foods. Serve smaller portions and eat less food throughout the day. Limit portion sizes to avoid overeating. Enjoy your food. Get at least 150 minutes of exercise every week. This is about 30 minutes each day, 5 or more days per week. It can be difficult to have every meal look like MyPlate. Think about MyPlate as eating guidelines for an entire day, rather than each individual meal. Fruits and vegetables Make one half of your plate fruits and vegetables. Eat many different colors of fruits and vegetables each day. For a 2,000-calorie daily food plan, eat: ?2 cups of vegetables every day. ?2 cups of fruit every day. 1 cup is equal to: ?1 cup raw or cooked vegetables. ?1 cup raw fruit. ?1 medium-sized orange, apple, or banana. ?1 cup 100% fruit or vegetable juice. ?2 cups raw leafy greens, such as lettuce, spinach, or kale. ? cup dried fruit. Grains One fourth of your plate should be grains. Make at least half of the grains you eat each day whole grains. For a 2,000-calorie daily food plan, eat 6 oz of grains every day. 1 oz is equal to: ?1 slice bread. ?1 cup cereal. ? cup cooked rice, cereal, or pasta. Protein One fourth of your plate should be protein. Eat a wide variety of protein foods, including meat, poultry, fish, eggs, beans, nuts, and tofu. For a 2,000-calorie daily food plan, eat 5 oz of protein every day. 1 oz is equal to: ?1 oz meat, poultry, or fish. ? cup cooked beans. ?1 egg. ? oz nuts or seeds. ?1 Tbsp peanut butter. Dairy Drink fat-free or low-fat (1%) milk. Eat or drink dairy as a side to meals. For a 2,000-calorie daily food plan, eat or drink 3 cups of dairy every day. 1 cup is equal to: ?1 cup milk, yogurt, cottage cheese, or soy milk (soy beverage). ?2 oz processed cheese. ?1 oz natural cheese. Fats, oils, salt, and sugars Only small amounts of oils are recommended. Avoid foods that are high in calories and low in nutritional value (empty calories), like foods high in fat or added sugars. Choose foods that are low in salt (sodium). Choose foods that have less than 140 milligrams (mg) of sodium per serving. Drink water instead of sugary drinks. Drink enough fluid to keep your urine pale yellow. Where to find support Work with your health care provider or a dietitian to develop a customized eating plan that is right for you. Download an romulo (mobile application) to help you track your daily food intake. Where to find more information USDA: ChooseMyPlate.gov Summary MyPlate is a general guideline for healthy eating from the USDA. It is based on the Dietary Guidelines for Americans, 2020 2024. In general, fruits and vegetables should take up one half of your plate, grains should take up one fourth of your plate, and protein should take up one fourth of your plate. This information is not intended to replace advice given to you by your health care provider. Make sure you discuss any questions you have with your health care provider. Document Revised: 07/21/2021 Document Reviewed: 07/21/2021 [employer] Patient Education 2022 [employer] 03/15/2024 19:31:24 MyPlate from USDA MyPlate from USDA MyPlate is an outline of a general healthy diet based on the Dietary Guidelines for Americans, 2020 2025, from the U.S. Department of Agriculture (USDA). It sets guidelines for how much food you should eat from each food group based on your age, sex, and level of physical activity. What are tips for following MyPlate? To follow MyPlate recommendations: Eat a wide variety of fruits and vegetables, grains, and protein foods. Serve smaller portions and eat less food throughout the day. Limit portion sizes to avoid overeating. Enjoy your food. Get at least 150 minutes of exercise every week. This is about 30 minutes each day, 5 or more days per week. It can be difficult to have every meal look like MyPlate. Think about MyPlate as eating guidelines for an entire day, rather than each individual meal. Fruits and vegetables Make one half of your plate fruits and vegetables. Eat many different colors of fruits and vegetables each day. For a 2,000-calorie daily food plan, eat: ?2 cups of vegetables every day. ?2 cups of fruit every day. 1 cup is equal to: ?1 cup raw or cooked vegetables. ?1 cup raw fruit. ?1 medium-sized orange, apple, or banana. ?1 cup 100% fruit or vegetable juice. ?2 cups raw leafy greens, such as lettuce, spinach, or kale. ? cup dried fruit. Grains One fourth of your plate should be grains. Make at least half of the grains you eat each day whole grains. For a 2,000-calorie daily food plan, eat 6 oz of grains every day. 1 oz is equal to: ?1 slice bread. ?1 cup cereal. ? cup cooked rice, cereal, or pasta. Protein One fourth of your plate should be protein. Eat a wide variety of protein foods, including meat, poultry, fish, eggs, beans, nuts, and tofu. For a 2,000-calorie daily food plan, eat 5 oz of protein every day. 1 oz is equal to: ?1 oz meat, poultry, or fish. ? cup cooked beans. ?1 egg. ? oz nuts or seeds. ?1 Tbsp peanut butter. Dairy Drink fat-free or low-fat (1%) milk. Eat or drink dairy as a side to meals. For a 2,000-calorie daily food plan, eat or drink 3 cups of dairy every day. 1 cup is equal to: ?1 cup milk, yogurt, cottage cheese, or soy milk (soy beverage). ?2 oz processed cheese. ?1 oz natural cheese. Fats, oils, salt, and sugars Only small amounts of oils are recommended. Avoid foods that are high in calories and low in nutritional value (empty calories), like foods high in fat or added sugars. Choose foods that are low in salt (sodium). Choose foods that have less than 140 milligrams (mg) of sodium per serving. Drink water instead of sugary drinks. Drink enough fluid to keep your urine pale yellow. Where to find support Work with your health care provider or a dietitian to develop a customized eating plan that is right for you. Download an romulo (mobile application) to help you track your daily food intake. Where to find more information USDA: ChooseMyPlate.gov Summary MyPlate is a general guideline for healthy eating from the USDA. It is based on the Dietary Guidelines for Americans, 2020 2024. In general, fruits and vegetables should take up one half of your plate, grains should take up one fourth of your plate, and protein should take up one fourth of your plate. This information is not intended to replace advice given to you by your health care provider. Make sure you discuss any questions you have with your health care provider. Document Revised: 07/21/2021 Document Reviewed: 07/21/2021 [employer] Patient Education 2022 [employer] 03/15/2024 19:30:42 Exercising to Lose Weight Exercising to Lose Weight Getting regular exercise is important for everyone. It is especially important if you are overweight. Being overweight increases your risk of heart disease, stroke, diabetes, high blood pressure, and several types of cancer. Exercising, and reducing the calories you consume, can help you lose weight and improve fitness and health. Exercise can be moderate or vigorous intensity. To lose weight, most people need to do a certain amount of moderate or vigorous-intensity exercise each week. How can exercise affect me? You lose weight when you exercise enough to burn more calories than you eat. Exercise also reduces body fat and builds muscle. The more muscle you have, the more calories you burn. Exercise also: Improves mood. Reduces stress and tension. Improves your overall fitness, flexibility, and endurance. Increases bone strength. Moderate-intensity exercise Moderate-intensity exercise is any activity that gets you moving enough to burn at least three times more energy (calories) than if you were sitting. Examples of moderate exercise include: Walking a mile in 15 minutes. Doing light yard work. Biking at an easy pace. Most people should get at least 150 minutes of moderate-intensity exercise a week to maintain their body weight. Vigorous-intensity exercise Vigorous-intensity exercise is any activity that gets you moving enough to burn at least six times more calories than if you were sitting. When you exercise at this intensity, you should be working hard enough that you are not able to carry on a conversation. Examples of vigorous exercise include: Running. Playing a team sport, such as football, basketball, and soccer. Jumping rope. Most people should get at least 75 minutes a week of vigorous exercise to maintain their body weight. What actions can I take to lose weight? The amount of exercise you need to lose weight depends on: Your age. The type of exercise. Any health conditions you have. Your overall physical ability. Talk to your health care provider about how much exercise you need and what types of activities are safe for you. Nutrition Make changes to your diet as told by your health care provider or diet and clinical nutrition manager (dietitian). This may include: ?Eating fewer calories. ?Eating more protein. ?Eating less unhealthy fats. ?Eating a diet that includes fresh fruits and vegetables, whole grains, low-fat dairy products, and lean protein. ?Avoiding foods with added fat, salt, and sugar. Drink plenty of water while you exercise to prevent dehydration or heat stroke. Activity Choose an activity that you enjoy and set realistic goals. Your health care provider can help you make an exercise plan that works for you. Exercise at a moderate or vigorous intensity most days of the week. ?The intensity of exercise may vary from person to person. You can tell how intense a workout is for you by paying attention to your breathing and heartbeat. Most people will notice their breathing and heartbeat get faster with more intense exercise. Do resistance training twice each week, such as: ?Push-ups. ?Sit-ups. ?Lifting weights. ?Using resistance bands. Getting short amounts of exercise can be just as helpful as long, structured periods of exercise. If you have trouble finding time to exercise, try doing these things as part of your daily routine: ?Get up, stretch, and walk around every 30 minutes throughout the day. ?Go for a walk during your lunch break. ?Park your car farther away from your destination. ?If you take public transportation, get off one stop early and walk the rest of the way. ?Make phone calls while standing up and walking around. ?Take the stairs instead of elevators or escalators. Wear comfortable clothes and shoes with good support. Do not exercise so much that you hurt yourself, feel dizzy, or get very short of breath. Where to find more information U.S. Department of Health and Human Services: www.hhs.gov Centers for Disease Control and Prevention: www.cdc.gov Contact a health care provider: Before starting a new exercise program. If you have questions or concerns about your weight. If you have a medical problem that keeps you from exercising. Get help right away if: You have any of the following while exercising: ?Injury. ?Dizziness. ?Difficulty breathing or shortness of breath that does not go away when you stop exercising. ?Chest pain. ?Rapid heartbeat. These symptoms may represent a serious problem that is an emergency. Do not wait to see if the symptoms will go away. Get medical help right away. Call your local emergency services (911 in the [place] Do not drive yourself to the hospital. Summary Getting regular exercise is especially important if you are overweight. Being overweight increases your risk of heart disease, stroke, diabetes, high blood pressure, and several types of cancer. Losing weight happens when you burn more calories than you eat. Reducing the amount of calories you eat, and getting regular moderate or vigorous exercise each week, helps you lose weight. This information is not intended to replace advice given to you by your health care provider. Make sure you discuss any questions you have with your health care provider. Document Revised: 10/26/2021 Document Reviewed: 10/26/2021 [employer] Patient Education 2022 [employer] 03/15/2024 19:30:39 BMI for Adults BMI for Adults What is BMI? Body mass index (BMI) is a number that is calculated from a person's weight and height. BMI can help estimate how much of a person's weight is composed of fat. BMI does not measure body fat directly. Rather, it is an alternative to procedures that directly measure body fat, which can be difficult and expensive. BMI can help identify people who may be at higher risk for certain medical problems. What are BMI measurements used for? BMI is used as a screening tool to identify possible weight problems. It helps determine whether a person is obese, overweight, a healthy weight, or underweight. BMI is useful for: Identifying a weight problem that may be related to a medical condition or may increase the risk for medical problems. Promoting changes, such as changes in diet and exercise, to help reach a healthy weight. BMI screening can be repeated to see if these changes are working. How is BMI calculated? BMI involves measuring your weight in relation to your height. Both height and weight are measured, and the BMI is calculated from those numbers. This can be done either in [place] ([place] or metric measurements. Note that charts and online BMI calculators are available to help you find your BMI quickly and easily without having to do these calculations yourself. To calculate your BMI in [place] ([place] measurements: 1.Measure your weight in pounds (lb). 2.Multiply the number of pounds by 703. For example, for a person who weighs 180 lb, multiply that number by 703, which equals 126,540. 3.Measure your height in inches. Then multiply that number by itself to get a measurement called inches squared. For example, for a person who is 70 inches tall, the inches squared measurement is 70 inches x 70 inches, which equals 4,900 inches squared. 4.Divide the total from step 2 (number of lb x 703) by the total from step 3 (inches squared): 126,540 4,900 = 25.8. This is your BMI. To calculate your BMI in metric measurements: 1.Measure your weight in kilograms (kg). 2.Measure your height in meters (m). Then multiply that number by itself to get a measurement called meters squared. For example, for a person who is 1.75 m tall, the meters squared measurement is 1.75 m x 1.75 m, which is equal to 3.1 meters squared. 3.Divide the number of kilograms (your weight) by the meters squared number. In this example: 70 3.1 = 22.6. This is your BMI. What do the results mean? BMI charts are used to identify whether you are underweight, normal weight, overweight, or obese. The following guidelines will be used: Underweight: BMI less than 18.5. Normal weight: BMI between 18.5 and 24.9. Overweight: BMI between 25 and 29.9. Obese: BMI of 30 or above. Keep these notes in mind: Weight includes both fat and muscle, so someone with a muscular build, such as an athlete, may have a BMI that is higher than 24.9. In cases like these, BMI is not an accurate measure of body fat. To determine if excess body fat is the cause of a BMI of 25 or higher, further assessments may need to be done by a health care provider. BMI is usually interpreted in the same way for men and women. Where to find more information For more information about BMI, including tools to quickly calculate your BMI, go to these websites: Centers for Disease Control and Prevention: www.cdc.gov [place] [employer]: www.heart.org National Heart, Lung, and Blood [place]: www.nhlbi.nih.gov Summary Body mass index (BMI) is a number that is calculated from a person's weight and height. BMI may help estimate how much of a person's weight is composed of fat. BMI can help identify those who may be at higher risk for certain medical problems. BMI can be measured using [place] measurements or metric measurements. BMI charts are used to identify whether you are underweight, normal weight, overweight, or obese. This information is not intended to replace advice given to you by your health care provider. Make sure you discuss any questions you have with your health care provider. Document Revised: 05/22/2020 Document Reviewed: 03/29/2020 [employer] Patient Education 2022 [employer] 03/15/2024 19:30:34 Chronic Back Pain, [id number] Chronic Back Pain When back pain lasts longer than 3 months, it is called chronic back pain. Pain may get worse at certain times (flare-ups). There are things you can do at home to manage your pain. Follow these instructions at home: Pay attention to any changes in your symptoms. Take these actions to help with your pain: Managing pain and stiffness If told, put ice on the painful area. Your doctor may tell you to use ice for 24 48 hours after the flare-up starts. To do this: ?Put ice in a plastic bag. ?Place a towel between your skin and the bag. ?Leave the ice on for 20 minutes, 2 3 times a day. If told, put heat on the painful area. Do this as often as told by your doctor. Use the heat source that your doctor recommends, such as a moist heat pack or a heating pad. ?Place a towel between your skin and the heat source. ?Leave the heat on for 20 30 minutes. ?Take off the heat if your skin turns bright red. This is especially important if you are unable to feel pain, heat, or cold. You may have a greater risk of getting burned. Soak in a warm bath. This can help relieve pain. Activity Avoid bending and other activities that make pain worse. When standing: ?Keep your upper back and neck straight. ?Keep your shoulders pulled back. ?Avoid slouching. When sitting: ?Keep your back straight. ?Relax your shoulders. Do not round your shoulders or pull them backward. Do not sit or event planning manager one place for long periods of time. Take short rest breaks during the day. Lying down or standing is usually better than sitting. Resting can help relieve pain. When sitting or lying down for a long time, do some mild activity or stretching. This will help to prevent stiffness and pain. Get regular exercise. Ask your doctor what activities are safe for you. Do not lift anything that is heavier than 10 lb (4.5 kg) or the limit that you are told, until your doctor says that it is safe. To prevent injury when you lift things: ?Bend your knees. ?Keep the weight close to your body. ?Avoid twisting. Sleep on a firm mattress. Try lying on your side with your knees slightly bent. If you lie on your back, put a pillow under your knees. Medicines Treatment may include medicines for pain and swelling taken by mouth or put on the skin, prescription pain medicine, or muscle relaxants. Take keek-jej-lrjpnvb and prescription medicines only as told by your doctor. Ask your doctor if the medicine prescribed to you: ?Requires you to avoid driving or using machinery. ?Can cause trouble pooping (constipation). You may need to take these actions to prevent or treat trouble pooping: ?Drink enough fluid to keep your pee (urine) pale yellow. ?Take mfrk-ckq-ypcmnaf or prescription medicines. ?Eat foods that are high in fiber. These include beans, whole grains, and fresh fruits and vegetables. ?Limit foods that are high in fat and sugars. These include fried or sweet foods. General instructions Do not use any products that contain nicotine or tobacco, such as cigarettes, e-cigarettes, and chewing tobacco. If you need help quitting, ask your doctor. Keep all follow-up visits as told by your doctor. This is important. Contact a doctor if: Your pain does not get better with rest or medicine. Your pain gets worse, or you have new pain. You have a high fever. You lose weight very quickly. You have trouble doing your normal activities. Get help right away if: One or both of your legs or feet feel weak. One or both of your legs or feet lose feeling (have numbness). You have trouble controlling when you poop (have a bowel movement) or pee (urinate). You have bad back pain and: ?You feel like you may vomit (nauseous), or you vomit. ?You have pain in your belly (abdomen). ?You have shortness of breath. ?You faint. Summary When back pain lasts longer than 3 months, it is called chronic back pain. Pain may get worse at certain times (flare-ups). Use ice and heat as told by your doctor. Your doctor may tell you to use ice after flare-ups. This information is not intended to replace advice given to you by your health care provider. Make sure you discuss any questions you have with your health care provider. Document Revised: 10/09/2020 Document Reviewed: 10/09/2020 [employer] Patient Education 2022 [employer]. 03/15/2024 18:27:18 Exercising to Lose Weight Exercising to Lose Weight Getting regular exercise is important for everyone. It is especially important if you are overweight. Being overweight increases your risk of heart disease, stroke, diabetes, high blood pressure, and several types of cancer. Exercising, and reducing the calories you consume, can help you lose weight and improve fitness and health. Exercise can be moderate or vigorous intensity. To lose weight, most people need to do a certain amount of moderate or vigorous-intensity exercise each week. How can exercise affect me? You lose weight when you exercise enough to burn more calories than you eat. Exercise also reduces body fat and builds muscle. The more muscle you have, the more calories you burn. Exercise also: Improves mood. Reduces stress and tension. Improves your overall fitness, flexibility, and endurance. Increases bone strength. Moderate-intensity exercise Moderate-intensity exercise is any activity that gets you moving enough to burn at least three times more energy (calories) than if you were sitting. Examples of moderate exercise include: Walking a mile in 15 minutes. Doing light yard work. Biking at an easy pace. Most people should get at least 150 minutes of moderate-intensity exercise a week to maintain their body weight. Vigorous-intensity exercise Vigorous-intensity exercise is any activity that gets you moving enough to burn at least six times more calories than if you were sitting. When you exercise at this intensity, you should be working hard enough that you are not able to carry on a conversation. Examples of vigorous exercise include: Running. Playing a team sport, such as football, basketball, and soccer. Jumping rope. Most people should get at least 75 minutes a week of vigorous exercise to maintain their body weight. What actions can I take to lose weight? The amount of exercise you need to lose weight depends on: Your age. The type of exercise. Any health conditions you have. Your overall physical ability. Talk to your health care provider about how much exercise you need and what types of activities are safe for you. Nutrition Make changes to your diet as told by your health care provider or diet and clinical nutrition manager (dietitian). This may include: ?Eating fewer calories. ?Eating more protein. ?Eating less unhealthy fats. ?Eating a diet that includes fresh fruits and vegetables, whole grains, low-fat dairy products, and lean protein. ?Avoiding foods with added fat, salt, and sugar. Drink plenty of water while you exercise to prevent dehydration or heat stroke. Activity Choose an activity that you enjoy and set realistic goals. Your health care provider can help you make an exercise plan that works for you. Exercise at a moderate or vigorous intensity most days of the week. ?The intensity of exercise may vary from person to person. You can tell how intense a workout is for you by paying attention to your breathing and heartbeat. Most people will notice their breathing and heartbeat get faster with more intense exercise. Do resistance training twice each week, such as: ?Push-ups. ?Sit-ups. ?Lifting weights. ?Using resistance bands. Getting short amounts of exercise can be just as helpful as long, structured periods of exercise. If you have trouble finding time to exercise, try doing these things as part of your daily routine: ?Get up, stretch, and walk around every 30 minutes throughout the day. ?Go for a walk during your lunch break. ?Park your car farther away from your destination. ?If you take public transportation, get off one stop early and walk the rest of the way. ?Make phone calls while standing up and walking around. ?Take the stairs instead of elevators or escalators. Wear comfortable clothes and shoes with good support. Do not exercise so much that you hurt yourself, feel dizzy, or get very short of breath. Where to find more information [place] Department of Health and Human Services: www.hhs.gov Centers for Disease Control and Prevention: www.cdc.gov Contact a health care provider: Before starting a new exercise program. If you have questions or concerns about your weight. If you have a medical problem that keeps you from exercising. Get help right away if: You have any of the following while exercising: ?Injury. ?Dizziness. ?Difficulty breathing or shortness of breath that does not go away when you stop exercising. ?Chest pain. ?Rapid heartbeat. These symptoms may represent a serious problem that is an emergency. Do not wait to see if the symptoms will go away. Get medical help right away. Call your local emergency services (911 in the [place] Do not drive yourself to the hospital. Summary Getting regular exercise is especially important if you are overweight. Being overweight increases your risk of heart disease, stroke, diabetes, high blood pressure, and several types of cancer. Losing weight happens when you burn more calories than you eat. Reducing the amount of calories you eat, and getting regular moderate or vigorous exercise each week, helps you lose weight. This information is not intended to replace advice given to you by your health care provider. Make sure you discuss any questions you have with your health care provider. Document Revised: 10/26/2021 Document Reviewed: 10/26/2021 [employer] Patient Education 2022 [employer] 03/15/2024 18:27:14 BMI for Adults BMI for Adults What is BMI? Body mass index (BMI) is a number that is calculated from a person's weight and height. BMI can help estimate how much of a person's weight is composed of fat. BMI does not measure body fat directly. Rather, it is an alternative to procedures that directly measure body fat, which can be difficult and expensive. BMI can help identify people who may be at higher risk for certain medical problems. What are BMI measurements used for? BMI is used as a screening tool to identify possible weight problems. It helps determine whether a person is obese, overweight, a healthy weight, or underweight. BMI is useful for: Identifying a weight problem that may be related to a medical condition or may increase the risk for medical problems. Promoting changes, such as changes in diet and exercise, to help reach a healthy weight. BMI screening can be repeated to see if these changes are working. How is BMI calculated? BMI involves measuring your weight in relation to your height. Both height and weight are measured, and the BMI is calculated from those numbers. This can be done either in [place] ([place] or metric measurements. Note that charts and online BMI calculators are available to help you find your BMI quickly and easily without having to do these calculations yourself. To calculate your BMI in [place] ([place] measurements: 1.Measure your weight in pounds (lb). 2.Multiply the number of pounds by 703. For example, for a person who weighs 180 lb, multiply that number by 703, which equals 126,540. 3.Measure your height in inches. Then multiply that number by itself to get a measurement called inches squared. For example, for a person who is 70 inches tall, the inches squared measurement is 70 inches x 70 inches, which equals 4,900 inches squared. 4.Divide the total from step 2 (number of lb x 703) by the total from step 3 (inches squared): 126,540 4,900 = 25.8. This is your BMI. To calculate your BMI in metric measurements: 1.Measure your weight in kilograms (kg). 2.Measure your height in meters (m). Then multiply that number by itself to get a measurement called meters squared. For example, for a person who is 1.75 m tall, the meters squared measurement is 1.75 m x 1.75 m, which is equal to 3.1 meters squared. 3.Divide the number of kilograms (your weight) by the meters squared number. In this example: 70 3.1 = 22.6. This is your BMI. What do the results mean? BMI charts are used to identify whether you are underweight, normal weight, overweight, or obese. The following guidelines will be used: Underweight: BMI less than 18.5. Normal weight: BMI between 18.5 and 24.9. Overweight: BMI between 25 and 29.9. Obese: BMI of 30 or above. Keep these notes in mind: Weight includes both fat and muscle, so someone with a muscular build, such as an athlete, may have a BMI that is higher than 24.9. In cases like these, BMI is not an accurate measure of body fat. To determine if excess body fat is the cause of a BMI of 25 or higher, further assessments may need to be done by a health care provider. BMI is usually interpreted in the same way for men and women. Where to find more information For more information about BMI, including tools to quickly calculate your BMI, go to these websites: Centers for Disease Control and Prevention: www.cdc.gov [place] [employer]: www.heart.org National Heart, Lung, and Blood [place]: www.nhlbi.nih.gov Summary Body mass index (BMI) is a number that is calculated from a person's weight and height. BMI may help estimate how much of a person's weight is composed of fat. BMI can help identify those who may be at higher risk for certain medical problems. BMI can be measured using [place] measurements or metric measurements. BMI charts are used to identify whether you are underweight, normal weight, overweight, or obese. This information is not intended to replace advice given to you by your health care provider. Make sure you discuss any questions you have with your health care provider. Document Revised: 05/22/2020 Document Reviewed: 03/29/2020 [employer] Patient Education 2022 [employer] 03/15/2024 18:27:12 Chronic Back Pain, [id number] Chronic Back Pain When back pain lasts longer than 3 months, it is called chronic back pain. Pain may get worse at certain times (flare-ups). There are things you can do at home to manage your pain. Follow these instructions at home: Pay attention to any changes in your symptoms. Take these actions to help with your pain: Managing pain and stiffness If told, put ice on the painful area. Your doctor may tell you to use ice for 24 48 hours after the flare-up starts. To do this: ?Put ice in a plastic bag. ?Place a towel between your skin and the bag. ?Leave the ice on for 20 minutes, 2 3 times a day. If told, put heat on the painful area. Do this as often as told by your doctor. Use the heat source that your doctor recommends, such as a moist heat pack or a heating pad. ?Place a towel between your skin and the heat source. ?Leave the heat on for 20 30 minutes. ?Take off the heat if your skin turns bright red. This is especially important if you are unable to feel pain, heat, or cold. You may have a greater risk of getting burned. Soak in a warm bath. This can help relieve pain. Activity Avoid bending and other activities that make pain worse. When standing: ?Keep your upper back and neck straight. ?Keep your shoulders pulled back. ?Avoid slouching. When sitting: ?Keep your back straight. ?Relax your shoulders. Do not round your shoulders or pull them backward. Do not sit or event planning manager one place for long periods of time. Take short rest breaks during the day. Lying down or standing is usually better than sitting. Resting can help relieve pain. When sitting or lying down for a long time, do some mild activity or stretching. This will help to prevent stiffness and pain. Get regular exercise. Ask your doctor what activities are safe for you. Do not lift anything that is heavier than 10 lb (4.5 kg) or the limit that you are told, until your doctor says that it is safe. To prevent injury when you lift things: ?Bend your knees. ?Keep the weight close to your body. ?Avoid twisting. Sleep on a firm mattress. Try lying on your side with your knees slightly bent. If you lie on your back, put a pillow under your knees. Medicines Treatment may include medicines for pain and swelling taken by mouth or put on the skin, prescription pain medicine, or muscle relaxants. Take yvio-jpy-otbphje and prescription medicines only as told by your doctor. Ask your doctor if the medicine prescribed to you: ?Requires you to avoid driving or using machinery. ?Can cause trouble pooping (constipation). You may need to take these actions to prevent or treat trouble pooping: ?Drink enough fluid to keep your pee (urine) pale yellow. ?Take rklg-wnj-wsfpxxe or prescription medicines. ?Eat foods that are high in fiber. These include beans, whole grains, and fresh fruits and vegetables. ?Limit foods that are high in fat and sugars. These include fried or sweet foods. General instructions Do not use any products that contain nicotine or tobacco, such as cigarettes, e-cigarettes, and chewing tobacco. If you need help quitting, ask your doctor. Keep all follow-up visits as told by your doctor. This is important. Contact a doctor if: Your pain does not get better with rest or medicine. Your pain gets worse, or you have new pain. You have a high fever. You lose weight very quickly. You have trouble doing your normal activities. Get help right away if: One or both of your legs or feet feel weak. One or both of your legs or feet lose feeling (have numbness). You have trouble controlling when you poop (have a bowel movement) or pee (urinate). You have bad back pain and: ?You feel like you may vomit (nauseous), or you vomit. ?You have pain in your belly (abdomen). ?You have shortness of breath. ?You faint. Summary When back pain lasts longer than 3 months, it is called chronic back pain. Pain may get worse at certain times (flare-ups). Use ice and heat as told by your doctor. Your doctor may tell you to use ice after flare-ups. This information is not intended to replace advice given to you by your health care provider. Make sure you discuss any questions you have with your health care provider. Document Revised: 10/09/2020 Document Reviewed: 10/09/2020 [employer] Patient Education 2022 [employer] [facility] Clinical Note 03-15-2024 Note Date & Type Note Facility 03-15-2024 Note Patient Education MyPlate from USDA MyPlate is an outline of a general healthy diet based on the Dietary Guidelines for Americans, 2020?2025, from the U.S. Department of Agriculture (USDA). It sets guidelines for how much food you should eat from each food group based on your age, sex, and level of physical activity. What are tips for following MyPlate? To follow MyPlate recommendations: ? Eat a wide variety of fruits and vegetables, grains, and protein foods. ? Serve smaller portions and eat less food throughout the day. ? Limit portion sizes to avoid overeating. ? Enjoy your food. ? Get at least 150 minutes of exercise every week. This is about 30 minutes each day, 5 or more days per week. It can be difficult to have every meal look like MyPlate. Think about MyPlate as eating guidelines for an entire day, rather than each individual meal. Fruits and vegetables ? Make one half of your plate fruits and vegetables. ? Eat many different colors of fruits and vegetables each day. ? For a 2,000-calorie daily food plan, eat: ? 2? cups of vegetables every day. ? 2 cups of fruit every day. ? 1 cup is equal to: ? 1 cup raw or cooked vegetables. ? 1 cup raw fruit. ? 1 medium-sized orange, apple, or banana. ? 1 cup 100% fruit or vegetable juice. ? 2 cups raw leafy greens, such as lettuce, spinach, or kale. ? ? cup dried fruit. Grains ? One fourth of your plate should be grains. ? Make at least half of the grains you eat each day whole grains. ? For a 2,000-calorie daily food plan, eat 6 oz of grains every day. ? 1 oz is equal to: ? 1 slice bread. ? 1 cup cereal. ? ? cup cooked rice, cereal, or pasta. Protein ? One fourth of your plate should be protein. ? Eat a wide variety of protein foods, including meat, poultry, fish, eggs, beans, nuts, and tofu. ? For a 2,000-calorie daily food plan, eat 5? oz of protein every day. ? 1 oz is equal to: ? 1 oz meat, poultry, or fish. ? ? cup cooked beans. ? 1 egg. ? ? oz nuts or seeds. ? 1 Tbsp peanut butter. Dairy ? Drink fat-free or low-fat (1%) milk. ? Eat or drink dairy as a side to meals. ? For a 2,000-calorie daily food plan, eat or drink 3 cups of dairy every day. ? 1 cup is equal to: ? 1 cup milk, yogurt, cottage cheese, or soy milk (soy beverage). ? 2 oz processed cheese. ? 1? oz natural cheese. Fats, oils, salt, and sugars ? Only small amounts of oils are recommended. ? Avoid foods that are high in calories and low in nutritional value (empty calories), like foods high in fat or added sugars. ? Choose foods that are low in salt (sodium). Choose foods that have less than 140 milligrams (mg) of sodium per serving. ? Drink water instead of sugary drinks. Drink enough fluid to keep your urine pale yellow. Where to find support ? Work with your health care provider or a dietitian to develop a customized eating plan that is right for you. ? Download an romulo (mobile application) to help you track your daily food intake. Where to find more information ? [employer]: ChooseMyPlate.gov Summary ? MyPlate is a general guideline for healthy eating from the USDA. It is based on the Dietary Guidelines for Americans, 2020?202. ? In general, fruits and vegetables should take up one half of your plate, grains should take up one fourth of your plate, and protein should take up one fourth of your plate. This information is not intended to replace advice given to you by your health care provider. Make sure you discuss any questions you have with your health care provider. Document Revised: 07/21/2021 Document Reviewed: 07/21/2021 [employer] Patient Education ? 2022 [employer]. Exercising to Lose Weight Getting regular exercise is important for everyone. It is especially important if you are overweight. Being overweight increases your risk of heart disease, stroke, diabetes, high blood pressure, and several types of cancer. Exercising, and reducing the calories you consume, can help you lose weight and improve fitness and health. Exercise can be moderate or vigorous intensity. To lose weight, most people need to do a certain amount of moderate or vigorous-intensity exercise each week. How can exercise affect me? You lose weight when you exercise enough to burn more calories than you eat. Exercise also reduces body fat and builds muscle. The more muscle you have, the more calories you burn. Exercise also: ? Improves mood. ? Reduces stress and tension. ? Improves your overall fitness, flexibility, and endurance. ? Increases bone strength. Moderate-intensity exercise Moderate-intensity exercise is any activity that gets you moving enough to burn at least three times more energy (calories) than if you were sitting. Examples of moderate exercise include: ? Walking a mile in 15 minutes. ? Doing light yard work. ? Biking at an easy pace. Most people should get at least 150 mi (more content not included)... [facility] Evaluation + Plan note Note Date & Type Note Facility Evaluation + Plan note No data available for this section [facility] Hospital Discharge instructions Note Date & Type Note Facility Hospital Discharge instructions No data available for this section [facility] Progress note Note Date & Type Note Facility Progress note No data available for this section [facility] Summary Purpose Family History No Family History Records Found No data available for this section No data available for this section No data available for this section No Family History Records FoundNo Family History Records Found Advance Directives No Advanced Directives Records FoundNo Advanced Directives Records FoundNo Advanced Directives Records Found Additional Source Comments (unrecognized sect ion and content) No Status Records FoundNo Status Records FoundNo Status Records Found INFORMATION SOURCE (unrecogn ized section and content) DATE CREATED AUTHOR 12/19/2021 [facility] DATE CREATED AUTHOR AUTHOR'S ORGANIZ ATION 05/08/2024 [facility] DATE CREATED AUTHOR AUTHOR'S ORGANIZ ATION 06/25/2024 [facility] Patient Care team informatio n (unrecognized section and content) Personnel Name: Keila House Address: Address: [address] [place] [address]- Personnel Name: Keila House Address: Address: [address] [place] [address]- Personnel Name: Keila Hosue Address: Address: [address] [place] [address]- FOR RECORDS PERTAINING TO PATIENTS WHO ARE OR HAVE BEEN ENROLLED IN A CHEMICAL DEPENDENCY/SUBSTANCEABUSE PROGRAM, SOME INFORMATION MAY BE OMITTED. This clinical summary was aggregated from multiple sources. Caution should be exercised in using it in the provision of clinical care. This summary normalizes information from multiple sources, and as a consequence, information in this document may materially change the coding, format and clinical context of patient data. In addition, data may be omitted in some cases. CLINICAL DECISIONS SHOULD BE BASED ON THE PRIMARY CLINICAL RECORDS. [facility]. provides no warranty or guarantee of the accuracy or completeness of information in this document.
== END 2024-07-04 16:23 | disposition home or self-care (01) ==
LOC: LAB 16:22
PROVIDERS: PCP Nurse Practitioner; Visit Provider Otolaryngology
DX: J30.9 Allergic rhinitis, unspecified (principal)
CPT/HCPCS: 36415; 86003